=== PATIENT | female | born 1960 | race Caucasian/White ===

== ENCOUNTER → 2016-09-10 | Outpatient (CLI) | payer BC, OTHER ==
--- NOTE | 2016-09-10 13:27 | Discharge Instructions ---
Discharge Instructions Procedure Procedure Date: Sep 10, 2016. Reason for visit: Right Calcs. Discharge Discharge Date: Sep 10, 2016. Discharge Diagnosis: status post breast biopsy Instructions Activity Recommendations: Additional Limitations (see below) Return to School/Work: no limitations Recommended Home Diet: No Limitations Provider Instructions: ACTIVITY RECOMMENDATIONS: * No lifting, pushing, pulling or exercising the affected side for three days. RETURN TO SCHOOL/WORK: * You may return to work/school after the procedure, but do not perform any strenuous activities for 24 to 48 hours. MEDICATIONS: * Tylenol (two 325 mg) every four to six hours if needed for mild pain (if not allergic to Tylenol). DIET: * Resume previous diet. SPECIAL CARE INSTRUCTIONS: * Keep biopsy site dry for 24 hours. May shower after 24 hours, but do not soak (bathe) incision. * May remove Tegaderm (plastic patch) tomorrow AFTER showering. * Leave the steri-strips on for one week. Allow the steri-strips to fall off by themselves. If not off after one week, you may remove them. You may place a Bandaid crosswise over the strips, if desired. * Apply ice 10 minutes on and 10 minutes off as needed. * Wear a bra at bedtime to sleep more comfortably for 2-3 days. * Your referring physician should have the results after approximately 5 to 7 business days. * Call for unusual bleeding, fever, drainage, etc or if you have any questions call during normal business hours or after hours call Dr Ferreira, . FOLLOW UP VISIT: Follow-up with Referring Physician as scheduled. Kaylie Harrisy Recommendations: Call your doctor if: * Temperature above 101 degrees * Pain not relieved by pain medicine ordered * There is increased drainage or redness from any incision * You have any unanswered questions or concerns. Your Doctors Instructions noted above were prepared by provider Raegan Ferreira. Patient Signature Section: Patient Instructions Signature Page Liudmila Frazier Patient (or Guardian) Signature/Date: I have read and understand the instructions given to me by my caregivers. Caregiver/RN/Doctor Signature/Date: The above-named patient and/or guardian has received patient instructions on this date. + Original Patient Signature Page (only) stays with chart. Please make copy for patient.
--- NOTE | 2016-09-10 15:47 | MAMMOGRAPHY REPORT ---
UNILATERAL RIGHT DIGITAL DIAGNOSTIC MAMMOGRAM: 09/10/2016 CLINICAL HISTORY: Status post stereotactic biopsy of right upper outer quadrant calcifications. TECHNIQUE: Postprocedural right CC and LM views were obtained. COMPARISON: Comparison is made to exams dated: 08/26/2016 mammogram, 08/12/2015 mammogram, 08/08/2014 mammogram, 06/20/2013 mammogram, and 06/02/2010 mammogram - [facility]. BREAST COMPOSITION: The tissue of the right breast is heterogeneously dense, which may obscure smal l masses. FINDINGS: A new biopsy marker clip is seen at the site of the biopsied calcifications in the right upper outer quadrant. The new clip is located posterior to the 2 adjacent clips from prior biopsies . No significant postbiopsy hematoma is seen. IMPRESSION: POST PROCEDURE IMAGING FOR MARKER PLACEMENT New biopsy marker clip status post stereotactic biopsy of right upper outer quadrant calcifications. Pathology results are pending. Approximately 10% of breast cancers are not detected with mammography. A negative mammographic repor t should not delay biopsy if a clinically suggestive mass is present. Raegan Ferreira M.D. ah/:09/10/2016 13:43:25 Explosives Mixer Operator: Tia Mirza [facility] BI-RADS Code: Post Procedure Imaging For Marker Placement
--- NOTE | 2016-09-10 15:47 | MAMMOGRAPHY REPORT ---
STEREOTACTIC GUIDED BIOPSY RIGHT BREAST: 09/10/2016 CLINICAL HISTORY: Indeterminate calcifications in the right upper outer quadrant. PATIENT CONSENT: The procedure, risks, benefits, and alternatives of stereotactic biopsy with clip p lacement were discussed with the patient, and verbal and written consent was obtained. A timeout wa s performed immediately prior to the procedure. PROCEDURE DESCRIPTION: With stereotactic guidance, aseptic technique, and lidocaine as a local anest hetic (1% lidocaine to anesthetize the skin and 1% lidocaine with epinephrine to anesthetize the sonia per tissues), the area of concern was sampled multiple times with a 9-gauge vacuum-assisted biopsy n eedle ([employer]uros Eviva). The path of approach was lateral. The specimen radiograph demonstrates calcif ications to be present in the samples. A metallic marker clip was placed at the biopsy site. This was confirmed on postprocedure mammograms. Direct pressure was applied at the biopsy site and hemos tasis was readily achieved. The patient tolerated the procedure without complication. She was give n wound care instructions. The samples were sent to pathology; the samples with calcifications were from the samples without calcifications. COMPARISON: Comparison is made to exams dated: 08/26/2016 mammogram, 08/12/2015 mammogram, 08/08/2014 mammogram, 06/20/2013 mammogram, 05/30/2012 mammogram, and 05/26/2011 mammogram - [facility]. IMPRESSION: STEREOTACTIC GUIDED BIOPSY Stereotactic biopsy of indeterminate calcifications in the right upper outer quadrant, with clip pratima cement. The samples containing calcifications were sent in a separate container from the samples wi thout calcifications. The patient will receive pathology results from her referring physician. Raegan Ferreira M.D. ah/:09/10/2016 13:42:08 Software Database Architect: Tia Mirza, [facility]
== END | disposition home or self-care (01) ==
LOC: C.MAMM 12:39
PROVIDERS: ATTEND Internal Medicine
DX: R92.1 Mammographic calcification found on diagnostic imaging of breast (principal)

== ENCOUNTER → 2017-08-23 | Outpatient (CLI) | payer BC ==
--- NOTE | 2017-08-23 13:06 | MAMMOGRAPHY REPORT ---
BILATERAL DIGITAL SCREENING MAMMOGRAM TOMOSYNTHESIS WITH CAD: 08/23/2017 CLINICAL HISTORY: Routine screening. TECHNIQUE: Breast tomosynthesis in addition to standard 2D mammography was performed. Current study was also evaluated with a Computer Aided Detection (CAD) system. COMPARISON: Comparison is made to exams dated: 09/10/2016 mammogram, 08/26/2016 mammogram, 08/17/2016 mammogram, 08/12/2015 mammogram, 08/08/2014 mammogram, and 06/07/2013 mammogram - [facility]. BREAST COMPOSITION: The tissue of both breasts is heterogeneously dense, which may obscure small mas ses. FINDINGS: There are 3 stable metallic biopsy marker is in the upper outer posterior right breast. Th e glandular pattern of the left breast is stable comparing to prior exams. There are stable rounded punctate microcalcifications bilaterally. No obvious new mass, definite area of architectural distor tion, developing asymmetry or suspicious microcalcifications are identified. IMPRESSION: ACR BI-RADS CATEGORY 1: NEGATIVE There is no mammographic evidence of malignancy. A 1 year screening mammogram is recommended. The pa tient will receive written notification of the results. Approximately 10% of breast cancers are not detected with mammography. A negative mammographic report should not delay biopsy if a clinically suggestive mass is present. iRca Lazo M.D. ay/:08/23/2017 11:14:56 Research Soil Scientist: Dariusz ALEXANDER(Vitaly)(Lizeth), [facility] letter sent: Normal 1/2 BI-RADS Code: ACR BI-RADS Category 1: Negative
== END | disposition home or self-care (01) ==
LOC: C.MAMM 08:57
PROVIDERS: ATTEND Internal Medicine
DX: Z12.31 Encounter for screening mammogram for malignant neoplasm of breast (principal)

== ENCOUNTER 2023-08-03 15:24 | Inpatient (IN) ==
--- NOTE | 2023-08-03 15:44 | ED Triage Note ---
Date of Service August 03, 2023 History of Present Illness This patient was briefly evaluated while in triage. An abbreviated physical exam was performed. This patient is a 63-year-old Female who presents to the ED for evaluation of general illness x 10 days. Reports fever, cough, general body aches. COVID test negative. Physical Exam Constitutional: alert and oriented x3. no acute distress. lethargic HEENT: normocephalic, atraumatic. normal conjunctiva.PERRLA. EOM's grossly intact. Mucous membranes dry Respiratory: lungs are clear to auscultation without wheezes, rhonchi, or rales bilaterally. equal chest rise. normal respiratory effort, no accessory muscle use. Cardiovascular: normal heart sounds without murmur. regular rate and rhythm. GI: abdomen is soft, nontender. No palpable masses. No rebound tenderness or guarding. MSK: moves all 4 extremities spontaneously Psych:appropriate mood and affect. Initial orders for labs and / or imaging were placed and patient was placed in the waiting area until a bed is available. Please see further documentation for the full ED course.
[2023-08-03 16:41] LABS: Alanine Aminotransferase 25 U/L (7-52); Albumin Level 3.5 gm/dl (3.4-5.0); Alkaline Phosphatase 85 U/L (34-104); Anion Gap 14 (3-11); Aspartate Aminotransferase 27 U/L (13-39); BUN Creatinine Ratio 12.9 (10-20); Bilirubin,Total 0.6 mg/dl (0.2-1.0); Blood Urea Nitrogen 19 mg/dl (6-23); Calcium 8.6 mg/dl (8.6-10.3); Carbon Dioxide 23 mmol/L (21-32); Chloride 92 mmol/L (98-107); Est GFR (African American) 43.9 ml/min; Est GFR (Non-African American) 37.9 ml/min; Globulin 3.4 gm/dl (2.5-4.0); Glucose 205 mg/dl (70-99(Fasting)); Potassium 3.9 mmol/L (3.5-5.1); Sodium 129 mmol/L (136-145); Total Protein 6.9 gm/dl (6.0-8.3)
[2023-08-03 16:47] LABS: Troponin I High Sensitivity 32.6 pg/ml (0-14)
--- NOTE | 2023-08-03 16:47 | XRay Report ---
XR chest 1V not portable HISTORY: 63 years-old Female cough fever acute cough with fever COMPARISON: None TECHNIQUE: AP view of the chest FINDINGS: Cardiac and mediastinal and hilar silhouettes are within normal limits. No pneumothorax, pleural effu rodolfo, or overt pulmonary edema. Ill-defined patchy subsegmental airspace opacities throughout the rig ht lung. Bones appear grossly intact. IMPRESSION: Subtle ill-defined patchy subsegmental right midlung opacities are suspicious for pneumon ia. ACT 112: Negative or not required by law. The above report was generated using voice recognition software. It may contain grammatical, syntax o r spelling errors. Electronically signed by: Maxwell Weber M.D. 08/03/2023 4:45 PM
[2023-08-03 16:52] LABS: White Blood Count 42.76 K/ul (4.8-10.8)
[2023-08-03 16:53] LABS: Hematocrit (blood only) 40.4 % (37.0-47.0); Hemoglobin 13.7 g/dl (12.0-16.0); Mean Corpuscular Hemoglobin 29.3 pg (25.0-34.0); Mean Corpuscular Hgb Conc 33.9 g/dL (32.0-36.0); Mean Corpuscular Volume 86.3 fL (80.0-100.0); Mean Platelet Volume 10.3 fL (9.4-12.4); Platelet Count 380 K/uL (130-400); RDW Coefficient of Variation 12.6 % (11.5-14.5); RDW Standard Deviation 39.8 fL (36.4-46.3); Red Blood Count 4.68 M/uL (4.20-5.40)
[2023-08-03] MEDS: SODIUM CHLORIDE 0.9% 1,000 ML IV SCH ×2 (16:55→17:38)
[2023-08-03] MEDS ORDERED: DOXYCYCLINE HYCLATE 100 MG in DEXTROSE 5% MINI-B 100 ML IV STA (16:56)
[2023-08-03] MEDS ORDERED: cefTRIAXone SODIUM 2,000 MG/50 ML BAG IV STA (16:56)
[2023-08-03 16:57] LABS: Basophils # (auto) 0.02 K/uL (0.00-0.20); Dohle Bodies 1+; Echinocytes 1+; Immature Granulocytes # (auto) 2.06 K/uL (0.01-0.20); Immature Granulocytes % (auto) 4.8 %; Lymphocytes # (auto) 1.46 K/uL (1.20-3.40); Lymphocytes % (auto) 3.4 %; Monocytes # (auto) 0.61 K/uL (0.11-0.59); Monocytes % (auto) 1.4 %; Neutrophils # (auto) 38.61 K/uL (1.40-6.50); Neutrophils % (auto) 90.4 %; Toxic Granulation 1+; Toxic Vacuolation 1+
--- NOTE | 2023-08-03 17:06 | Emergency Department Note ---
History of Present Illness General Chief complaint: Flu Like Symptoms Stated complaint: HAND/FEET SWELLING, FLU LIKE SYMPTOMS Time Seen by Provider: 08/03/23 16:43 History of Present Illness Provider complaint: Fever cough sore throat body aches Onset (ago): day(s) 10 Associated symptoms: + fever/chills 63-year-old female presents emergency department for fever cough sore throat and bodyaches. Patient reports her symptoms began 10 days ago. Patient states she is increasingly weak. She states she has not been able to eat or drink anything for last 48 hours. She states that she started developing a rash diffusely over her body today. She denies any new medications or supplements. Patient does report that she has exposure to outdoor cats which have ticks on them but is not sure if she has been bit by any ticks. Home Medications Medication Instructions Recorded Confirmed Type No Known Home Medications 08/03/23 08/03/23 History Allergies Allergy/AdvReac Type Severity Reaction Status Date / Time No Known Allergies Allergy Verified 08/03/23 18:17 Past Med/Surg History Medical History History of basal cell carcinoma History of abnormal cervical Pap smear Surgical History S/P tonsillectomy Family History Father Bladder cancer Denies family history of Ovarian cancer Prostate cancer Heart disease Breast cancer Colorectal cancer Social History Smoking Status: Never smoker Age Started Using Tobacco: 19; Age Quit Using Tobacco: 43; Second Hand Exposure: No; Do You Dip or Chew Tobacco: No; Hx Alcohol Use: Yes Alcohol type: beer Hx Substance Use: No marital status: Current Living Situation: Other current occupational status: employed Feels Safe at Home: Yes Dental Care, Regularly: Yes Physical Activity Frequency: 1-2 Times per Week Physical Exam Vital Signs Vital Signs - 24 hr 08/03/23 15:41 08/03/23 17:00 08/03/23 17:03 Temperature 37.5 C Temperature Source Temporal Artery Scan Pulse Rate 155 H 131 H 141 H Respiratory Rate 19 20 Respiratory Effort / Characteristics Non-Labored Spontaneous Respiratory Depth Normal Blood Pressure 113/69 106/72 Blood Pressure Mean 83 83 Pulse Oximetry 96 97 Oxygen Delivery Method Room Air Room Air Sepsis Recent Fever Within 48 Hours No Sepsis New/Unexplained Change in Mental Status N/A Sepsis Action Taken by Nursing No Action Required 08/03/23 17:31 08/03/23 18:00 08/03/23 18:11 Temperature 38.1 C H Temperature Source Oral Pulse Rate 147 H 147 H Respiratory Rate 21 24 Respiratory Effort / Characteristics Respiratory Depth Blood Pressure 118/62 143/57 H Blood Pressure Mean 80 85 Pulse Oximetry 94 93 Oxygen Delivery Method Room Air Room Air Sepsis Recent Fever Within 48 Hours Sepsis New/Unexplained Change in Mental Status Sepsis Action Taken by Nursing 08/03/23 18:15 08/03/23 18:30 08/03/23 18:45 Temperature Temperature Source Pulse Rate 135 H 129 H 138 H Respiratory Rate 26 H 25 H 17 Respiratory Effort / Characteristics Respiratory Depth Blood Pressure 138/74 131/67 88/69 L Blood Pressure Mean 95 88 75 Pulse Oximetry 94 93 96 Oxygen Delivery Method Room Air Room Air Room Air Sepsis Recent Fever Within 48 Hours Sepsis New/Unexplained Change in Mental Status Sepsis Action Taken by Nursing Physical Exam GENERAL: Ill-appearing. HENT: Exam performed. -Head: Normocephalic and atraumatic. -Mouth/Throat: Dry mucous membranes. No trismus. No submental swelling. No tongue elevation. EYES: Conjunctivae and EOM are normal. Pupils are equal, round, and reactive to light. Right eye exhibits no discharge. Left eye exhibits no discharge. No scleral icterus. NECK: Normal range of motion. Neck supple. No JVD present. No spinous process tenderness present. No rigidity. No tracheal deviation and normal range of motion present. CV: Tachycardic rate, regular rhythm, normal heart sounds and intact distal pulses. There is no peripheral edema. Palpable radial pulses bue. PULM/CHEST: Effort normal and breath sounds normal. No respiratory distress. No stridor. She has no wheezes. She has no rales. ABD: The abdomen is soft. There is no tenderness. There is no rebound, no guarding LYMPH: Bilateral cervical adenopathy. NEURO: She is alert and oriented to person, place, and time. She has normal strength. No cranial nerve deficit or sensory deficit. GCS eye subscore is 4. GCS verbal subscore is 5. GCS motor subscore is 6. SKIN: Diffuse macular rash from her bilateral lower extremities up to her scalp. Nonblanching. No vesicles. Nikolsky negative. Course Course 1643: The patient was evaluated in room C9. A complete history and physical exam was performed Cardiac monitoring: An order was placed for continuous cardiac monitoring. The monitor shows a rate of 140 with sinus tachycardia rhythm interpreted by id Sepsis protocols initiated 2 L normal saline bolus ordered for the patient. 1700: Chest x-ray read by radiology which shows opacities in the right midlung concerning for pneumonia. Antibiotics begun with Rocephin and doxycycline for pulmonary infection which would also cover for any tickborne illnesses including Lyme disease and/or anaplasmosis. 1756: Patient remains tachycardic while IV fluids are infusing. Blood pressure and oxygen saturation are stable. Labs show a white blood cell count of 42.76. Neutrophils 30.61. Coagulation studies within normal limits. Sodium 129. Creatinine 1.47. Lactic acid 3.8. Magnesium 1.4. High-sensitivity troponin 32.6. Patient not reporting any chest pain. Procalcitonin 4.26. Patient's bio fire swab is positive for COVID. Patient's Lyme screen is negative. Anaplasmosis and babesiosis smear is negative. CT scan of soft tissue neck shows no acute abnormality in the neck with some paranasal sinus disease. CT of the head is within normal limits. Discussed case with Dr. Lange [facility] hospitalist will evaluate the patient for admission. Administered Medications Fexofenadine HCl (Fexofenadine Hcl 180 Mg Tab) 180 mg PO QAM BENNIE Stop: 09/02/23 19:44 Last Admin: 08/03/23 21:07 Dose: 180 mg Documented By: DAVE Discontinued Medications Sodium Chloride (Nss) 1,000 mls @ 999 mls/hr IV .Q1H1M BENNIE Stop: 08/03/23 18:45 Last Infusion: 08/03/23 19:49 Dose: Infused Documented By: Admin: 08/03/23 17:38 Dose: 999 mls/hr Documented By: Infusion: 08/03/23 17:38 Dose: Infused Documented By: Admin: 08/03/23 16:55 Dose: 999 mls/hr Documented By: MELANIE Ceftriaxone Sodium (Rocephin) 2,000 mg in 50 mls @ 100 mls/hr IV NOW STA Stop: 08/03/23 17:25 Last Infusion: 08/03/23 17:32 Dose: Infused Documented By: Admin: 08/03/23 17:02 Dose: 100 mls/hr Documented By: MELANIE Doxycycline Hyclate 100 mg/ (Dextrose) 100 mls @ 50 mls/hr IV NOW STA Stop: 08/03/23 18:55 Last Infusion: 08/03/23 19:49 Dose: Infused Documented By: Admin: 08/03/23 17:31 Dose: 50 mls/hr Documented By: MELANIE Piperacillin Sod/Tazobactam Sod (Zosyn) 4.5 gm in 100 mls @ 200 mls/hr IV ONE STA Stop: 08/03/23 19:25 Last Infusion: 08/03/23 20:45 Dose: Infused Documented By: Admin: 08/03/23 20:00 Dose: 200 mls/hr Documented By: DAVE Lactated Ringer's (Lr) 1,000 mls @ 999 mls/hr IV .Q1H1M ONE Stop: 08/03/23 20:00 Last Admin: 08/03/23 19:44 Dose: 999 mls/hr Documented By: DAVE Magnesium Sulfate/Dextrose (Magnesium Sulfate / D5w) 1 gm in 100 mls @ 100 mls/hr IV NOW STA Stop: 08/03/23 20:26 Last Admin: 08/03/23 20:00 Dose: 100 mls/hr Documented By: DAVE Acetaminophen (Ofirmev) 1,000 mg in 100 mls @ 400 mls/hr IV NOW STA Stop: 08/03/23 21:12 Last Admin: 08/03/23 21:06 Dose: 400 mls/hr Documented By: DAVE Ioversol (Optiray 320 500ml) 85 ml IV ONCE ONE Stop: 08/03/23 17:27 Last Admin: 08/03/23 17:26 Dose: 85 ml Documented By: CAROLYN Critical Care Time Critical Care Time: Yes Total Critical Care Time: 62 I have personally spent greater than 62 minutes of critical care time in the direct management of this patient. This includes bedside care, interpretation of diagnostic studies, and testing, discussion with consultants, patient, and family members, and other required patient management activities. This 62 minutes is in excess of all separately billable procedures. Medical Decision Making Laboratory Data Attestation: I reviewed the patient's lab results. 08/03/23 15:54 08/03/23 15:54 Lab Results 08/03/23 08/03/23 08/03/23 Range/Units 15:44 15:54 15:55 WBC 42.76 H* (4.8-10.8) K/ul RBC 4.68 (4.20-5.40) M/uL Hgb 13.7 (12.0-16.0) g/dl Hct 40.4 (37.0-47.0) % MCV 86.3 (80.0-100.0) fL MCH 29.3 (25.0-34.0) pg MCHC 33.9 (32.0-36.0) g/dL RDW Std Deviation 39.8 (36.4-46.3) fL RDW Coeff of Isai 12.6 (11.5-14.5) % Plt Count 380 (130-400) K/uL MPV 10.3 (9.4-12.4) fL Immature Gran % (Auto) 4.8 % Neut % (Auto) 90.4 % Lymph % (Auto) 3.4 % Calloway % (Auto) 1.4 % Eos % (Auto) 0.0 % Baso % (Auto) 0.0 % Neut # (Auto) 38.61 H (1.40-6.50) K/uL Lymph # (Auto) 1.46 (1.20-3.40) K/uL Calloway # (Auto) 0.61 H (0.11-0.59) K/uL Eos # (Auto) 0.00 (0.00-0.50) K/uL Baso # (Auto) 0.02 (0.00-0.20) K/uL Immature Gran # (Auto) 2.06 H (0.01-0.20) K/uL Toxic Granulation 1+ Toxic Vacuolation 1+ Dohle Bodies 1+ Echinocytes 1+ ESR 81 H (0-30) mm/hr PT 13.5 H (9.0-12.0) Seconds INR 1.2 H (0.9-1.1) APTT 30.1 (21.0-31.0) Seconds PTT Ratio 1.1 Sodium 129 L (136-145) mmol/L Potassium 3.9 (3.5-5.1) mmol/L Chloride 92 L (98-107) mmol/L Carbon Dioxide 23 (21-32) mmol/L Anion Gap 14 H (3-11) BUN 19 (6-23) mg/dl Creatinine 1.47 H (0.6-1.2) mg/dl Est Cr Clr Drug Dosing Not Reportable Est GFR ( Amer) 43.9 ml/min Est GFR (Non-Af Amer) 37.9 ml/min BUN/Creatinine Ratio 12.9 (10-20) Glucose 205 H (70-99(Fasting)) mg/dl Lactate (0.4-2.0) mmol/L Calcium 8.6 (8.6-10.3) mg/dl Magnesium 1.4 L (1.7-2.4) mg/dl Total Bilirubin 0.6 (0.2-1.0) mg/dl AST 27 (13-39) U/L ALT 25 (7-52) U/L Alkaline Phosphatase 85 (34-104) U/L Troponin I High Sens 32.6 H (0-14) pg/ml Total Protein 6.9 (6.0-8.3) gm/dl Albumin 3.5 (3.4-5.0) gm/dl Globulin 3.4 (2.5-4.0) gm/dl Albumin/Globulin Ratio 1.0 (0.9-2) Procalcitonin 4.26 H (0-0.5) ng/ml Urine Color Urine Appearance (Clear) Urine pH (4.5-7.5) Ur Specific [place] (1.000-1.030) Urine Protein (Negative) Urine Glucose (UA) (Negative) Urine Ketones (Negative) Urine Blood (Negative) Urine Nitrite (Negative) Urine Bilirubin (Negative) Urine Urobilinogen (Negative) Ur Leukocyte Esterase (Negative) Urine WBC (Auto) (0-5) /hpf Urine RBC (Auto) (0-4) /hpf U Hyaline Cast (Auto) (0-5) /lpf U Epithel Cells (Auto) (0-5) /lpf Urine Bacteria (Auto) (Negative) Ur Renal Epithelial Cell Urine Yeast Anaplasma Smear See Comment Babesia Smear See Comment Lyme Disease IgG Ab Negative (Negative) Lyme Disease IgM Ab Negative (Negative) Monoscreen Negative (Negative) Group A Strep (PCR) (NotDetected) 08/03/23 08/03/23 08/03/23 Range/Units 16:50 17:13 17:58 WBC (4.8-10.8) K/ul RBC (4.20-5.40) M/uL Hgb (12.0-16.0) g/dl Hct (37.0-47.0) % MCV (80.0-100.0) fL MCH (25.0-34.0) pg MCHC (32.0-36.0) g/dL RDW Std Deviation (36.4-46.3) fL RDW Coeff of Isai (11.5-14.5) % Plt Count (130-400) K/uL MPV (9.4-12.4) fL Immature Gran % (Auto) % Neut % (Auto) % Lymph % (Auto) % Calloway % (Auto) % Eos % (Auto) % Baso % (Auto) % Neut # (Auto) (1.40-6.50) K/uL Lymph # (Auto) (1.20-3.40) K/uL Calloway # (Auto) (0.11-0.59) K/uL Eos # (Auto) (0.00-0.50) K/uL Baso # (Auto) (0.00-0.20) K/uL Immature Gran # (Auto) (0.01-0.20) K/uL Toxic Granulation Toxic Vacuolation Dohle Bodies Echinocytes ESR (0-30) mm/hr PT (9.0-12.0) Seconds INR (0.9-1.1) APTT (21.0-31.0) Seconds PTT Ratio Sodium (136-145) mmol/L Potassium (3.5-5.1) mmol/L Chloride (98-107) mmol/L Carbon Dioxide (21-32) mmol/L Anion Gap (3-11) BUN (6-23) mg/dl Creatinine (0.6-1.2) mg/dl Est Cr Clr Drug Dosing Est GFR ( Amer) ml/min Est GFR (Non-Af Amer) ml/min BUN/Creatinine Ratio (10-20) Glucose (70-99(Fasting)) mg/dl Lactate 3.8 H* (0.4-2.0) mmol/L Calcium (8.6-10.3) mg/dl Magnesium (1.7-2.4) mg/dl Total Bilirubin (0.2-1.0) mg/dl AST (13-39) U/L ALT (7-52) U/L Alkaline Phosphatase (34-104) U/L Troponin I High Sens (0-14) pg/ml Total Protein (6.0-8.3) gm/dl Albumin (3.4-5.0) gm/dl Globulin (2.5-4.0) gm/dl Albumin/Globulin Ratio (0.9-2) Procalcitonin (0-0.5) ng/ml Urine Color Dark Yellow Urine Appearance Cloudy A (Clear) Urine pH 5.5 (4.5-7.5) Ur Specific [place] > 1.045 H (1.000-1.030) Urine Protein 2+ H (Negative) Urine Glucose (UA) Negative (Negative) Urine Ketones Negative (Negative) Urine Blood 1+ H (Negative) Urine Nitrite Negative (Negative) Urine Bilirubin Negative (Negative) Urine Urobilinogen Negative (Negative) Ur Leukocyte Esterase Negative (Negative) Urine WBC (Auto) 10-30 H (0-5) /hpf Urine RBC (Auto) 0-4 (0-4) /hpf U Hyaline Cast (Auto) 1-5 (0-5) /lpf U Epithel Cells (Auto) >30 H (0-5) /lpf Urine Bacteria (Auto) Negative (Negative) Ur Renal Epithelial Cell Not Reportable Urine Yeast Not Reportable Anaplasma Smear Babesia Smear Lyme Disease IgG Ab (Negative) Lyme Disease IgM Ab (Negative) Monoscreen (Negative) Group A Strep (PCR) NOT DETECTED (NotDetected) Imaging Data Radiologist's Impression: Chest X-Ray 08/03/23 15:44 XR chest 1V not portable HISTORY: 63 years-old Female cough fever acute cough with fever COMPARISON: None TECHNIQUE: AP view of the chest FINDINGS: Cardiac and mediastinal and hilar silhouettes are within normal limits. No pneumothorax, pleural effusion, or overt pulmonary edema. Ill-defined patchy subsegmental airspace opacities throughout the right lung. Bones appear grossly intact. IMPRESSION: Subtle ill-defined patchy subsegmental right midlung opacities are suspicious for pneumonia. ACT 112: Negative or not required by law. The above report was generated using voice recognition software. It may contain grammatical, syntax or spelling errors. Electronically signed by: Maxwell Weber M.D. 08/03/2023 4:[address] 08/03/23 16:54 CT SCAN OF THE BRAIN WITHOUT IV CONTRAST CLINICAL HISTORY: Headache. COMPARISON STUDY: No priors. TECHNIQUE: Unenhanced axial CT scan of the brain is performed from the vertex to the skull base. A dose lowering technique was utilized adhering to the principles of ALARA. FINDINGS: Brain parenchyma: The brain parenchyma is normal in appearance. There is no hemorrhage, mass effect, or evidence of acute territorial ischemia by CT criteria. Pa-white matter differentiation is preserved. No extra-axial fluid collection is seen. Ventricles, sulci, cisterns: Normal in configuration. Intracranial vasculature: The visualized intracranial vasculature at the skull base is normal in appearance. Calvarium: Unremarkable. Sinuses and mastoids: There is moderate mucosal thickening within the maxillary antra and ethmoid sinuses. Air-fluid levels are seen within the maxillary sinuses. There is subtotal opacification and fluid within the sphenoid sinuses. Trace mucosal thickening is seen in the frontal sinuses. The mastoid air cells are well pneumatized. Orbits: The bony orbits are grossly intact. IMPRESSION: 1. There is no hemorrhage, mass effect, or evidence of acute territorial ischemia by CT criteria. 2. Pansinus disease as above. Correlate clinically for evidence of acute sinusitis. ACT 112: Negative or not required by law. Electronically signed by: Jamey Meyer M.D. 08/03/2023 5:[address] 08/03/23 16:54 CT SCAN OF THE NECK WITH IV CONTRAST CLINICAL HISTORY: Sore throat. COMPARISON STUDY: No priors. TECHNIQUE: Following the IV administration of 85 cc of Optiray 320, CT scan of the soft tissues of the neck was performed from the skull base to the upper chest. Images are reviewed in the axial, sagittal, and coronal planes. IV contrast was administered without complication. A dose lowering technique was utilized adhering to the principles of ALARA. FINDINGS: Pharynx: The pharyngeal soft tissues are normal as imaged. The pharyngeal airway is widely patent. There is no evidence of mass lesion. The vocal cords are symmetric. The parapharyngeal fat is well maintained. The prevertebral/retropharyngeal soft tissues are within normal limits. The epiglottis is normal. Lymphadenopathy: There are numerous small cervical lymph nodes which are not pathologically enlarged by size criteria. Thyroid: Normal in size and heterogeneous in attenuation. Salivary glands: The parotid and submandibular glands are within normal limits. Brain parenchyma: The visualized brain parenchyma at the skull base is normal in appearance. Vascular structures: The carotid arteries and jugular veins are patent bilaterally. Moderate atherosclerotic calcification is seen in the carotid bulbs. Skeletal structures: The skeletal structures are osteopenic. Imaged portions of the calvarium at the skull base are within normal limits. The cervical spine appears intact. Sinuses and mastoids: There is moderate mucosal thickening within the maxillary antra and ethmoid sinuses. Air-fluid levels are seen within the maxillary sinuses. There is subtotal opacification and fluid within the sphenoid sinuses. The mastoid air cells are well pneumatized. Lung apices: Visualized apical lung parenchyma is clear. Dentition: There is a large periapical lucency involving the most posterior left maxillary molar. IMPRESSION: 1. No acute abnormality is seen in the neck. 2. Paranasal sinus disease as above. Correlate clinically for evidence of sinusitis. 3. There are numerous cervical chain lymph nodes. These are not pathologically enlarged by size criteria and may be reactive. Cortical clinically. 4. A large apical lucency is seen involving the most posterior left maxillary molar. Follow up with dentistry is recommended. ACT 112: Negative or not required by law. Electronically signed by: Jamey Meyer M.D. 08/03/2023 5:39 PM ECG Data Attestation: I personally reviewed and interpreted this ECG as follows: Rate (beats per minute): 152 Rhythm: + sinus tachycardia ECG Intervals/blocks: + Normal IN and + Normal QT-c ECG ST segments: + Normal ST segments Additional Comments: 78 MDM Narrative 1643: The patient was evaluated in room C9. A complete history and physical exam was performed Cardiac monitoring: An order was placed for continuous cardiac monitoring. The monitor shows a rate of 140 with sinus tachycardia rhythm interpreted by id Sepsis protocols initiated 2 L normal saline bolus ordered for the patient. 1700: Chest x-ray read by radiology which shows opacities in the right midlung concerning for pneumonia. Antibiotics begun with Rocephin and doxycycline for pulmonary infection which would also cover for any tickborne illnesses including Lyme disease and/or anaplasmosis. 1756: Patient remains tachycardic while IV fluids are infusing. Blood pressure and oxygen saturation are stable. Labs show a white blood cell count of 42.76. Neutrophils 30.61. Coagulation studies within normal limits. Sodium 129. Creatinine 1.47. Lactic acid 3.8. Magnesium 1.4. High-sensitivity troponin 32.6. Patient not reporting any chest pain. Procalcitonin 4.26. Patient's bio fire swab is positive for COVID. Patient's Lyme screen is negative. Anaplasmosis and babesiosis smear is negative. CT scan of soft tissue neck shows no acute abnormality in the neck with some paranasal sinus disease. CT of the head is within normal limits. Discussed case with Dr. Lange [facility] hospitalist will evaluate the patient for admission. Impression & Plan Sepsis, COVID-19, Pneumonia Discharge Plan Visit Data Chief Complaint: Flu Like Symptoms Stated Complaint: HAND/FEET SWELLING, FLU LIKE SYMPTOMS ED Provider: Calvin Williamson Discharge Problem: Sepsis, COVID-19, Pneumonia Patient Disposition: Admitted As Inpatient Discharge Problem: Sepsis Qualifiers: Sepsis type: sepsis due to unspecified organism Sepsis acute organ dysfunction status: unspecified Qualified Code(s): A41.9 - Sepsis, unspecified organism Pneumonia Qualifiers: Pneumonia type: due to unspecified organism Laterality: unspecified laterality Lung location: unspecified part of lung Qualified Code(s): J18.9 - Pneumonia, unspecified organism
[2023-08-03 17:14] LABS: Magnesium 1.4 mg/dl (1.7-2.4)
[2023-08-03 17:15] LABS: INR 1.2 (0.9-1.1); Partial Thromboplastin Ratio 1.1; Partial Thromboplastin Time 30.1 Seconds (21.0-31.0); Prothrombin Time 13.5 Seconds (9.0-12.0)
[2023-08-03] MEDS ORDERED: OPTIRAY 320 500ml IV ONE (17:26)
[2023-08-03 17:29] LABS: Monotest Negative (Negative)
[2023-08-03 17:34] LABS: Adenovirus PCR Not Detected (NotDetected); Bordetella parapertussis PCR Not Detected (NotDetected); Bordetella pertussis PCR Not Detected (NotDetected); Chlamydia pneumoniae PCR Not Detected (NotDetected); Coronavirus 229E PCR Not Detected (NotDetected); Coronavirus HKU1 PCR Not Detected (NotDetected); Coronavirus NL63 PCR Not Detected (NotDetected); Coronavirus OC43PCR Not Detected (NotDetected); Human Metapneumovirus PCR Not Detected (NotDetected); Influenza A PCR Not Detected (NotDetected); Influenza B PCR Not Detected (NotDetected); Mycoplasma pneumoniae PCR Not Detected (NotDetected); Parainfluenza Virus 1 PCR Not Detected (NotDetected); Parainfluenza Virus 2 PCR Not Detected (NotDetected); Parainfluenza Virus 3 PCR Not Detected (NotDetected); Parainfluenza Virus 4 PCR Not Detected (NotDetected); Respiratory Syncytial VirusPCR Not Detected (NotDetected); Rhinovirus/Enterovirus PCR Not Detected (NotDetected)
--- NOTE | 2023-08-03 17:41 | CT Scan Report ---
CT SCAN OF THE NECK WITH IV CONTRAST CLINICAL HISTORY: Sore throat. COMPARISON STUDY: No priors. TECHNIQUE: Following the IV administration of 85 cc of Optiray 320, CT scan of the soft tissues of th e neck was performed from the skull base to the upper chest. Images are reviewed in the axial, sagitt al, and coronal planes. IV contrast was administered without complication. A dose lowering techniqu e was utilized adhering to the principles of ALARA. FINDINGS: Pharynx: The pharyngeal soft tissues are normal as imaged. The pharyngeal airway is widely patent. Th ere is no evidence of mass lesion. The vocal cords are symmetric. The parapharyngeal fat is well main tained. The prevertebral/retropharyngeal soft tissues are within normal limits. The epiglottis is nor mal. Lymphadenopathy: There are numerous small cervical lymph nodes which are not pathologically enlarged by size criteria. Thyroid: Normal in size and heterogeneous in attenuation. Salivary glands: The parotid and submandibular glands are within normal limits. Brain parenchyma: The visualized brain parenchyma at the skull base is normal in appearance. Vascular structures: The carotid arteries and jugular veins are patent bilaterally. Moderate atherosc lerotic calcification is seen in the carotid bulbs. Skeletal structures: The skeletal structures are osteopenic. Imaged portions of the calvarium at the skull base are within normal limits. The cervical spine appears intact. Sinuses and mastoids: There is moderate mucosal thickening within the maxillary antra and ethmoid sin uses. Air-fluid levels are seen within the maxillary sinuses. There is subtotal opacification and flu id within the sphenoid sinuses. The mastoid air cells are well pneumatized. Lung apices: Visualized apical lung parenchyma is clear. Dentition: There is a large periapical lucency involving the most posterior left maxillary molar. IMPRESSION: 1. No acute abnormality is seen in the neck. 2. Paranasal sinus disease as above. Correlate clinically for evidence of sinusitis. 3. There are numerous cervical chain lymph nodes. These are not pathologically enlarged by size crite araceli and may be reactive. Cortical clinically. 4. A large apical lucency is seen involving the most posterior left maxillary molar. Follow up with deloris braden is recommended. ACT 112: Negative or not required by law. Electronically signed by: Jamey Meyer M.D. 08/03/2023 5:39 PM
[2023-08-03 17:48] LABS: Coronavirus CoV-2 (COVID19)PCR DETECTED (NotDetected)
[2023-08-03 17:48] LABS: Procalcitonin 4.26 ng/ml (0-0.5)
--- NOTE | 2023-08-03 17:49 | CT Scan Report ---
CT SCAN OF THE BRAIN WITHOUT IV CONTRAST CLINICAL HISTORY: Headache. COMPARISON STUDY: No priors. TECHNIQUE: Unenhanced axial CT scan of the brain is performed from the vertex to the skull base. A d ose lowering technique was utilized adhering to the principles of ALARA. FINDINGS: Brain parenchyma: The brain parenchyma is normal in appearance. There is no hemorrhage, mass effect, or evidence of acute territorial ischemia by CT criteria. Pa-white matter differentiation is preser stefano. No extra-axial fluid collection is seen. Ventricles, sulci, cisterns: Normal in configuration. Intracranial vasculature: The visualized intracranial vasculature at the skull base is normal in appe arance. Calvarium: Unremarkable. Sinuses and mastoids: There is moderate mucosal thickening within the maxillary antra and ethmoid sin uses. Air-fluid levels are seen within the maxillary sinuses. There is subtotal opacification and flu id within the sphenoid sinuses. Trace mucosal thickening is seen in the frontal sinuses. The mastoid air cells are well pneumatized. Orbits: The bony orbits are grossly intact. IMPRESSION: 1. There is no hemorrhage, mass effect, or evidence of acute territorial ischemia by CT criteria. 2. Pansinus disease as above. Correlate clinically for evidence of acute sinusitis. ACT 112: Negative or not required by law. Electronically signed by: Jamey Meyer M.D. 08/03/2023 5:47 PM
[2023-08-03 17:54] LABS: Lyme Ab IgG w/WB Rflx Negative (Negative); Lyme Ab IgM w/WB Rflx Negative (Negative)
--- NOTE | 2023-08-03 18:11 | History & Physical Report ---
Date of Service August 03, 2023 Assessment & Plan (1) Sepsis: Plan: Suspected source sore throat - group A strep negative, culture pending Sepsis bolus 30ml/kg (1800ml) given in the ER (total 2L NSS) Lactate 3.8 -> 2.5 Empiric Zosyn + doxycycline Follow up blood, throat, urine cultures (2) Sore throat: Plan: Suspected source. No one sided swelling or pus seen on exam. Group A strep PCR negative. Follow up throat culture (3) COVID-19: Plan: Suspect symptoms secondary to bacterial rather than COVID-19. Outside window for anti-virals irregardless. No hypoxia to warrant steroids and relatively contraindicated with suspected bacterial sepsis. Isolation precautions (4) Pneumonia: Plan: Very mild changes on CXR - doubtful this is causing her severe sepsis but will cover for atypical infection with doxycycline in addition to Zosyn. Biofire positive for COVID (5) Rash: Plan: No mucous membrane involvement, blistering to suspect Bhaskar Robert. Not characteristic of erythema marginatum at this time. ?viral exanthem Will consult ID for further advice Start Sabine given pruritus (6) Hyponatremia: Plan: Suspect this is nutritional and will just repeat after NSS given around midnight. If not resolving consider further workup for SIADH (7) Elevated troponin: Plan: No chest pain or significant shortness of breath to suggest ACS Will continue to trend to peak Suspect just demand ischemia however will also get TTE to assess for carditis Plan VTE Prophylaxis - deferred on admission pending stability in Hgb Diet - regular Disposition - admit to PCU Admission and Anticipated Discharge Date Admission Date: August 03, 2023 History of Present Illness Chief Complaint: Sore throat, generalized weakness Primary Care Provider: Anju Thayer MD Liudmila Frazier is a 63 year old female who presents to the ER with generalized weakness, malaise, loss of taste, hand and foot swelling, rash, cough, fever and sore throat. Initial symptom started with sore throat on Tuesday with associated chills and non-productive cough. She reports losing her voice from Tuesday to but now feels this has come back. She has not taken any over the counter medications except for cough sweets. Specifically no NSAIDs. She denies any allergies to any medications. Rash started yesterday on her truck and now over her entire body. She denies any difficulty breathing although her has noticed she is very fatigued on exertion but just hasn't been exerting herself for the last couple of days. She reports everything she eats taste like salt. She denies any sinus pain, tooth ache, chest pain, abdominal pain, diarrhea, nausea, vomiting, urinary symptoms, melena or hematochezia. She notes a history of tonsillectomy aged 5. She is otherwise healthy with no chronic medical conditions or regular medications. She tested positive for SARS-COV-2 in the ER. She reports no prior known COVID. Allergies Allergy/AdvReac Type Severity Reaction Status Date / Time No Known Allergies Allergy Verified 08/03/23 18:17 Home Medications Medication Instructions Recorded Confirmed Type No Known Home Medications 08/03/23 08/03/23 History Past Med/Surg History Medical History History of basal cell carcinoma History of abnormal cervical Pap smear Surgical History S/P tonsillectomy Family History Father Bladder cancer Denies family history of Ovarian cancer Prostate cancer Heart disease Breast cancer Colorectal cancer Social History Smoking Status: Former smoker Age Started Using Tobacco: 19; Age Quit Using Tobacco: 43; Second Hand Exposure: No; Do You Dip or Chew Tobacco: No; Hx Alcohol Use: Yes Alcohol type: beer Hx Substance Use: No Preferred Language: Georgian Communication Ability: Effective Mapping Technician Required: No Beliefs That Will Affect Care: None marital status: Current Living Situation: Family Current Living Situation Comment: Lives with ex-Justice current occupational status: employed Other Information That Helps Us Care for You: No Feels Safe at Home: Yes Safety Concerns: Feels Safe At This Time Dental Care, Regularly: Yes Physical Activity Frequency: 1-2 Times per Week Review of Systems Review of Systems: All systems reviewed & are unremarkable except as noted in HPI & below Physical Exam Constitutional: WD/WN, vitals as above Eyes: PERRL, conjunctivae normal, anicteric sclerae ENMT: Mouth: + dry oral mucous membranes Neck: trachea midline, no thyromegaly Respiratory: normal respiratory effort, lungs clear to auscultation Cardiovascular: Rate/Rhythm: regular rhythm and + tachycardic Heart Sounds: no murmur Extremities: normal capillary refill; no calf tenderness and no pedal edema Gastrointestinal (Abdomen): normal bowel sounds, soft, nontender, no hepatosplenomegaly Musculoskeletal: no cyanosis or clubbing, extremities motor strength 5/5 Skin: Macular rash homogenous and confluent over abdominal wall and bilateral arms but splotchy over bilateral legs Neurologic: moves all extremities (generalized weakness equal bilaterally) and awake Psychiatric: A+Ox3, euthymic affect Genitourinary: no CVA tenderness Lymphatic: no cervical lymphadenopathy Results & Data Results & Data Vital Signs (Past 12 Hours) Vital Signs Temp Pulse Resp BP Pulse Ox O2 Del Method 08/03/23 17:03 141 H 08/03/23 15:41 37.5 C 155 H 19 113/69 96 Room Air Laboratory Results Abnormal lab results 08/03/23 08/03/23 08/03/23 Range/Units 15:54 15:55 17:13 WBC 42.76 H* (4.8-10.8) K/ul Neut # (Auto) 38.61 H (1.40-6.50) K/uL C[place]ra # (Auto) 0.61 H (0.11-0.59) K/uL Immature Gran # (Auto) 2.06 H (0.01-0.20) K/uL PT 13.5 H (9.0-12.0) Seconds INR 1.2 H (0.9-1.1) Sodium 129 L (136-145) mmol/L Chloride 92 L (98-107) mmol/L Anion Gap 14 H (3-11) Creatinine 1.47 H (0.6-1.2) mg/dl Glucose 205 H (70-99(Fasting)) mg/dl Lactate 3.8 H* (0.4-2.0) mmol/L Magnesium 1.4 L (1.7-2.4) mg/dl Troponin I High Sens 32.6 H (0-14) pg/ml Procalcitonin 4.26 H (0-0.5) ng/ml SARS-CoV-2 (PCR) (NotDetected) 08/03/23 Range/Units Unknown WBC (4.8-10.8) K/ul Neut # (Auto) (1.40-6.50) K/uL Cidra # (Auto) (0.11-0.59) K/uL Immature Gran # (Auto) (0.01-0.20) K/uL PT (9.0-12.0) Seconds INR (0.9-1.1) Sodium (136-145) mmol/L Chloride (98-107) mmol/L Anion Gap (3-11) Creatinine (0.6-1.2) mg/dl Glucose (70-99(Fasting)) mg/dl Lactate (0.4-2.0) mmol/L Magnesium (1.7-2.4) mg/dl Troponin I High Sens (0-14) pg/ml Procalcitonin (0-0.5) ng/ml SARS-CoV-2 (PCR) DETECTED A* (NotDetected) Diagnostic Findings CT SCAN OF THE BRAIN WITHOUT IV CONTRAST CLINICAL HISTORY: Headache. COMPARISON STUDY: No priors. TECHNIQUE: Unenhanced axial CT scan of the brain is performed from the vertex to the skull base. A dose lowering technique was utilized adhering to the principles of ALARA. FINDINGS: Brain parenchyma: The brain parenchyma is normal in appearance. There is no hemorrhage, mass effect, or evidence of acute territorial ischemia by CT criteria. Pa-white matter differentiation is preserved. No extra-axial fluid collection is seen. Ventricles, sulci, cisterns: Normal in configuration. Intracranial vasculature: The visualized intracranial vasculature at the skull base is normal in appearance. Calvarium: Unremarkable. Sinuses and mastoids: There is moderate mucosal thickening within the maxillary antra and ethmoid sinuses. Air-fluid levels are seen within the maxillary sinuses. There is subtotal opacification and fluid within the sphenoid sinuses. Trace mucosal thickening is seen in the frontal sinuses. The mastoid air cells are well pneumatized. Orbits: The bony orbits are grossly intact. IMPRESSION: 1. There is no hemorrhage, mass effect, or evidence of acute territorial ischemia by CT criteria. 2. Pansinus disease as above. Correlate clinically for evidence of acute sinusitis. CT SCAN OF THE NECK WITH IV CONTRAST CLINICAL HISTORY: Sore throat. COMPARISON STUDY: No priors. TECHNIQUE: Following the IV administration of 85 cc of Optiray 320, CT scan of the soft tissues of the neck was performed from the skull base to the upper ch est. Images are reviewed in the axial, sagittal, and coronal planes. IV contrast was administered without complication. A dose lowering technique was utilized adhering to the principles of ALARA. FINDINGS: Pharynx: The pharyngeal soft tissues are normal as imaged. The pharyngeal airway is widely patent. There is no evidence of mass lesion. The vocal cords are symmetric. The parapharyngeal fat is well maintained. The prevertebral/retropharyngeal soft tissues are within normal limits. The epiglottis is normal. Lymphadenopathy: There are numerous small cervical lymph nodes which are not pathologically enlarged by size criteria. Thyroid: Normal in size and heterogeneous in attenuation. Salivary glands: The parotid and submandibular glands are within normal limits. Brain parenchyma: The visualized brain parenchyma at the skull base is normal in appearance. Vascular structures: The carotid arteries and jugular veins are patent bilaterally. Moderate atherosclerotic calcification is seen in the carotid bulbs. Skeletal structures: The skeletal structures are osteopenic. Imaged portions of the calvarium at the skull base are within normal limits. The cervical spine appears intact. Sinuses and mastoids: There is moderate mucosal thickening within the maxillary antra and ethmoid sinuses. Air-fluid levels are seen within the maxillary sinuses. There is subtotal opacification and fluid within the sphenoid sinuses. The mastoid air cells are well pneumatized. Lung apices: Visualized apical lung parenchyma is clear. Dentition: There is a large periapical lucency involving the most posterior left maxillary molar. IMPRESSION: 1. No acute abnormality is seen in the neck. 2. Paranasal sinus disease as above. Correlate clinically for evidence of sinusitis. 3. There are numerous cervical chain lymph nodes. These are not pathologically enlarged by size criteria and may be reactive. Cortical clinically. 4. A large apical lucency is seen involving the most posterior left maxillary molar. Follow up with dentistry is recommended. XR chest 1V not portable HISTORY: 63 years-old Female cough fever acute cough with fever COMPARISON: None TECHNIQUE: AP view of the chest FINDINGS: Cardiac and mediastinal and hilar silhouettes are within normal limits. No pneumothorax, pleural effusion, or overt pulmonary edema. Ill-defined patchy subsegmental airspace opacities throughout the right lung. Bones appear grossly intact. IMPRESSION: Subtle ill-defined patchy subsegmental right midlung opacities are suspicious for pneumonia. Medications Administered ER Medications Given: Normal saline 1000ml bolus x2 Ceftriaxone 2g IV Doxycycline 100mg IV ECG Rate (beats per minute): 152 Rhythm: sinus tachycardia Findings: + other (right axis deviation) Comparison ECG Date: no prior available Code Status & VTE Plan Code Status Full VTE Prophylaxis Plan VTE Prophylaxis will be ordered: No PG Care Time/CCT Total # of Minutes Spent Total Time Spent with Patient: Total time spent is greater than 50% in coordination of care (as documented) at patient's floor/unit and/or counseling patient: Coding Level of Care Code 86721 INT INP/OBS CARE 3/75MIN Diagnoses Sepsis A41.9 Sore throat J02.9 COVID-19 U07.1 Pneumonia J18.9 Laterality: unspecified laterality Lung location: unspecified part of lung Pneumonia type: due to unspecified organism Rash R21 Hyponatremia E87.1 Elevated troponin R79.89 (4) Pneumonia Laterality: unspecified laterality Lung location: unspecified part of lung Pneumonia type: due to unspecified organism Qualified Code(s): J18.9 - Pneumonia, unspecified organism
[2023-08-03 18:18] LABS: Appearance Urine Cloudy (Clear); Bacteria Urine Automated Negative (Negative); Bilirubin Urine Negative (Negative); Blood Urine 1+ (Negative); Color Urine Dark Yellow; Epithelial Cell Urine Auto >30 /lpf (0-5); Glucose Urine UA Negative (Negative); Ketones Urine Negative (Negative); Leukocyte Esterase Urine Negative (Negative); Nitrite Urine Negative (Negative); Protein Urine 2+ (Negative); RBC Urine Automated 0-4 /hpf (0-4); Specific Gravity Urine > 1.045 (1.000-1.030); Urobilinogen Urine Negative (Negative); pH Urine 5.5 (4.5-7.5)
[2023-08-03] MEDS ORDERED: PIPERACILLIN/TAZOBACTAM 4.5 GM in DEXTROSE 5% MINI-B 100 ML IV ONE (18:54)
[2023-08-03] MEDS ORDERED: PIPERACILLIN/TAZOBACTAM 4.5 GM/100 ML BAG IV STA (18:56)
[2023-08-03] MEDS ORDERED: LACTATED RINGER'S 1,000 ML IV ONE (19:00)
[2023-08-03] MEDS ORDERED: MAGNESIUM SULFATE / D5W 1 GM/100 ML BAG IV STA (19:27)
[2023-08-03 19:56] LABS: C Reactive Protein 29.45 mg/dl (0-0.5)
[2023-08-03 20:16] LABS: Troponin I High Sensitivity 65.7 pg/ml (0-14)
[2023-08-03] MEDS ORDERED: ACETAMINOPHEN 1,000 MG/100 ML VIAL IV STA (20:58)
[2023-08-03] MEDS: FEXOFENADINE HCL 180 MG TAB PO SCH (21:07)
[2023-08-03] MEDS ORDERED: MAGNESIUM SULFATE / D5W 1 GM/100 ML BAG IV SCH (21:32)
[2023-08-03] MEDS ORDERED: ACETAMINOPHEN 325 MG TAB PO PRN (21:54)
[2023-08-03] MEDS: PLASMA-LYTE A 1,000 ML IV SCH (22:17)
[2023-08-04] MEDS: PIPERACILLIN/TAZOBACTAM 4.5 GM in DEXTROSE 5% MINI-B 100 ML IV SCH ×3 (00:20→18:09)
[2023-08-04 01:11] LABS: Hematocrit (blood only) 31.5 % (37.0-47.0); Hemoglobin 10.7 g/dl (12.0-16.0); Mean Corpuscular Hemoglobin 29.3 pg (25.0-34.0); Mean Corpuscular Volume 86.3 fL (80.0-100.0); Mean Platelet Volume 9.6 fL (9.4-12.4); Platelet Count 276 K/uL (130-400); RDW Coefficient of Variation 12.7 % (11.5-14.5); RDW Standard Deviation 40.3 fL (36.4-46.3); Red Blood Count 3.65 M/uL (4.20-5.40)
[2023-08-04 01:17] LABS: Calcium 7.4 mg/dl (8.6-10.3); Est GFR (African American) 65.2 ml/min; Est GFR (Non-African American) 56.2 ml/min; Potassium 3.3 mmol/L (3.5-5.1)
[2023-08-04 01:20] LABS: Basophils # (auto) 0.15 K/uL (0.00-0.20); Basophils % (auto) 0.4 %; Echinocytes 1+; Eosinophils # (auto) 0.01 K/uL (0.00-0.50); Immature Granulocytes # (auto) 1.78 K/uL (0.01-0.20); Immature Granulocytes % (auto) 5.1 %; Lymphocytes # (auto) 1.68 K/uL (1.20-3.40); Lymphocytes % (auto) 4.8 %; Monocytes # (auto) 0.54 K/uL (0.11-0.59); Monocytes % (auto) 1.5 %; Neutrophils # (auto) 31.04 K/uL (1.40-6.50); Neutrophils % (auto) 88.2 %
[2023-08-04 01:29] LABS: Troponin I High Sensitivity 82.3 pg/ml (0-14)
[2023-08-04] MEDS ORDERED: POTASSIUM CHLORIDE CRTAB 20 MEQ TABCR PO STA (01:47)
[2023-08-04] MEDS: DOXYCYCLINE HYCLATE 100 MG in DEXTROSE 5% MINI-B 100 ML IV SCH ×2 (06:03→18:43)
[2023-08-04] MEDS: PLASMA-LYTE A 1,000 ML IV SCH ×3 (06:05→22:35)
[2023-08-04 07:07] LABS: Hematocrit (blood only) 29.9 % (37.0-47.0); Hemoglobin 10.2 g/dl (12.0-16.0); Mean Corpuscular Hemoglobin 29.1 pg (25.0-34.0); Mean Corpuscular Hgb Conc 34.1 g/dL (32.0-36.0); Mean Corpuscular Volume 85.4 fL (80.0-100.0); Mean Platelet Volume 9.8 fL (9.4-12.4); Platelet Count 262 K/uL (130-400); RDW Coefficient of Variation 12.3 % (11.5-14.5); RDW Standard Deviation 38.5 fL (36.4-46.3); White Blood Count 31.16 K/ul (4.8-10.8)
[2023-08-04 07:19] LABS: INR 1.3 (0.9-1.1); Prothrombin Time 13.8 Seconds (9.0-12.0)
[2023-08-04 07:23] LABS: Albumin Globulin Ratio 1.1 (0.9-2); Albumin Level 2.7 gm/dl (3.4-5.0); BUN Creatinine Ratio 15.9 (10-20); Bilirubin,Total 0.6 mg/dl (0.2-1.0); Calcium 7.6 mg/dl (8.6-10.3); Creatinine Clr Calc Pharmacy 60.2 ml/min; Est GFR (African American) 81.6 ml/min; Est GFR (Non-African American) 70.4 ml/min; Globulin 2.5 gm/dl (2.5-4.0); Magnesium 1.8 mg/dl (1.7-2.4); Potassium 3.9 mmol/L (3.5-5.1); Total Protein 5.2 gm/dl (6.0-8.3)
[2023-08-04 07:24] LABS: BUN Creatinine Ratio 15.9 (10-20); Calcium 7.6 mg/dl (8.6-10.3); Creatinine Clr Calc Pharmacy 60.2 ml/min; Est GFR (African American) 81.6 ml/min; Est GFR (Non-African American) 70.4 ml/min; Potassium 3.9 mmol/L (3.5-5.1)
[2023-08-04 07:32] LABS: Basophils # (auto) 0.06 K/uL (0.00-0.20); Basophils % (auto) 0.2 %; Dohle Bodies 1+; Echinocytes 2+; Eosinophils # (auto) 0.02 K/uL (0.00-0.50); Eosinophils % (auto) 0.1 %; Immature Granulocytes # (auto) 1.43 K/uL (0.01-0.20); Immature Granulocytes % (auto) 4.6 %; Lymphocytes # (auto) 1.48 K/uL (1.20-3.40); Lymphocytes % (auto) 4.7 %; Monocytes # (auto) 0.37 K/uL (0.11-0.59); Monocytes % (auto) 1.2 %; Neutrophils % (auto) 89.2 %
[2023-08-04 07:33] LABS: Troponin I High Sensitivity 64.5 pg/ml (0-14)
[2023-08-04 07:54] LABS: Thyroid Stimulating Hormone 1.03 uIu/ml (0.300-4.500)
[2023-08-04] MEDS: FEXOFENADINE HCL 180 MG TAB PO SCH (09:34)
--- NOTE | 2023-08-04 11:11 | Infectious Disease Consult ---
Date of Consultation August 04, 2023 Assessment & Plan (1) COVID-19: (2) Elevated troponin: (3) Pharyngitis: (4) Fever: (5) Leukocytosis: (6) Rash: (7) Erythema marginatum: Plan Liudmila Frazier is a 63-year-old woman with history of tonsillectomy (at age 5) who presents to the ED on 08/03/23 with sore throat, diffuse rash, cough, fever, sore throat, dysgeusia, hand and foot swelling, found to be Covid-19+, with fevers, elevated troponin (peak 82), ESR 81 CRP 29. ID is consulted for Covid-19 and evaluation of fevers. Concern for hyperinflammatory response to Covid-19 including MIS-A. The patients D1 of Covid-19 symptoms was 07/24/23. Without hypoxemia, and >10 days out from sx, thus would not give remdesivir. Concern that patients clinical picture may represent MIS-A or other systemic rheumatologic disease due to Covid-19 infection. Regarding MIS-A, pt with rash but does not have non- purulent conjunctivitis; she does have elevated ESR and procalcitonin (though these are nonspecific) and a +SARS-CoV-2 test. t also with hypotension to SBP 80s-90. Will send IL-6 and ferritin. Of note, pts LLE swollen compared with R and would consider RLE duplex. With elevated troponin which could be c/f myocarditis/pericarditis. and thus would obtain TTE, though no chest pain to suggest pericarditis. Would highly consider glucocorticoids, IVIG, and anakinra. Case definition of MIS-A: https://www.cdc.gov/mis/mis-a/hcp.html Case report with steroids, IVIG, anakinra: htt ps://www.acpjournals.org/doi/10.7326/aimcc.2021.0066#F2 Dosing for MIS-C (a similar and more well-described syndrome in children): https://www.snnhe14hbybwrzmsznhmdvlvrh.nih.gov/tables/wfs-e-zbvunr-regimens/ Given the pts leukocytosis and fevers, also checking for other infections including typical bacterial infection. BCx NGTD. Without s/sx of bacterial pneumonia. With severe pharyngitis symptoms though without abscess, pt is s/p tonsillectomy. Some sinusitis on CT though would not expect that to explain the patients severe presentation. Throat PCR negative for Group A Strep, throat cx NGTD. Will also send Monospot, Mycoplasma pneumoniae PCR and serology. Will also send Histo UrAg. Can continue pip-tazo. If worsening fevers, can repeat BCx. If hemodynamic instability, can start IV vancomycin as well. The patients rash has coalescing patches and macules, as well as circular lesionsthe circular lesions appearing to resemble erythema marginatum and less resembling erythema multiforme. This can be associated with Covid-19 as well though is nonspecific and associated with other infections as well. Also considered the possibility of tickborne illness, though pts rash does not appear to be maculopapular and does not resemble erythema migrans. Rickettsia Ab and Anaplasma/Babesia studies pending. Thus far with negative Anaplasma smear, Lyme Ab neg. Can continue doxycycline. ID Problem List: 1.Covid-19 infection 2.Fever, leukocytosis, concern for MIS-A 3.Rash, possible erythema marginatum 4.Pharyngitis 5.Elevated troponin Recommendations: - Would highly consider steroids (methylprednisolone 1-2 mg/kg IV Q12H), anakinra, and IVIG - Continue doxycycline 100 mg BID (can change to PO if pt tolerating) - Continue pip-tazo 4.5 g IV Q8H - If worsening fevers, can repeat BCx. If hemodynamic instability, can start IV vancomycin as well - Send IL-6, ferritin, monospot, HSV-1/2 PCR, Mycoplasma pneumoniae Ab, Histo UrAg - F/u Rickettsia Ab, Q fever Ab, Anaplasma DNA PCR, Babesia DNA PCR, Babesia smear - Obtain TTE - Continue to trend ESR/CRP, repeat in ~3 days ID will continue to follow. Raegan Skaggs MD, [facility] Infectious Diseases [facility] direct line: [phone] Consultation Information Consultation was provided via telemedicine using two-way real-time interactive telecommunication between the patient and the telemedicine provider. For the duration of the visit, the provider was performing the assessment from a different facility than the patient. This includesuse of bluetooth stethoscope forauscultationperformed by the telepresenter that the telemedicine provider c an hear if described in the physical exam. [employer] contact information: Please call [facility] Call Center [phone]. (Phone Number For Physician Use Only) After establishing a telemedicine visit, patient was: Patient was verified with two unique identifiers, Patient/authorized rep acknowledged consent and understanding and Gave permission to continue telehealth session Time Spent with Patient: Initial => 75 min History of Present Illness Reason for Consultation: Covid-19, fevers Attending Physician: Corin West MD History of Present Illness Liudmila Frazier is a 63-year-old woman with history of tonsillectomy (at age 5) who presents to the ED on 08/03/23 with sore throat, diffuse rash, cough, fever, sore throat, dysgeusia, hand and foot swelling, found to be Covid-19+, with fevers, elevated troponin (peak 82), ESR 81 CRP 29. ID is consulted for Covid-19 and evaluation of fevers. Her initial symptoms began with sore throat on Tuesday 07/24, with associated chills and non-productive cough. Her home Covid test was negative on Friday 07/27. She reports losing her voice from Thursday 07/26 to 07/28 but this improved. She was able to work on 07/25 but was very fatigued afterward. She then developed a rash on 08/02 that started on her trunk and generalized to her entire body, as well as swelling in her hands and feet bilaterally. She also developed fevers. The rash is slightly pruritic but not painful. No shortness of breath, but worsened fatigue. The patient also reports dysgeusia where everythin g she eats taste like salt. No chest pain, dyspnea, abdominal pain, nausea, vomiting, urinary symptoms. She has not taken any over the counter medications except for cough lozenges. Did not take NSAIDs, and is not aware of any allergies to any medications. No antibiotics, no steroids. No sick contacts, and no exposure to any children. In the ED, TMax on 08/03 of 39.5, BP ranged 88/69 to 143/57. WBC of 42.76 (90.4% neutrophils, 4.8% immature granulocytes). ESR 81 CRP 29.45. Procalcitonin 4.26. She tested positive for SARS-COV-2 on a respiratory pathogen panel. Lactate 3.8 -> 2.5. Troponin 65.7->82.3->64.5.She was started on pip-tazo and doxycycline. On 08/04 with WBC of 31, Hgb 10.2 and plts 262. At the time of evaluation, the patient is having significant throat pain and therefore finds it difficult to talk. She reports a few intermittent loose stools (only 0-1/day), and aching of her bilateral shoulders. She reports no prior known Covid infection. She received her primary Covid-19 vaccine series (she believes in 2019) but has not had any further Covid vaccines since that time. She has history of tonsillectomy at age 5. She is otherwise healthy with no chronic medical conditions or regular medications. She lives with her . She has one outside cat, that has been noted to have ticks. No cat scratches or bites. No hiking, camping, or fishing. 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 She does not have a personal or family history of autoimmune disease. Allergies Allergy/AdvReac Type Severity Reaction Status Date / Time No Known Allergies Allergy Verified 08/03/23 18:17 Home Medications Medication Instructions Recorded Confirmed Type No Known Home Medications 08/03/23 08/03/23 History Patient History Medical History History of basal cell carcinoma History of abnormal cervical Pap smear Surgical History S/P tonsillectomy Family History Father Bladder cancer Denies family history of Ovarian cancer Prostate cancer Heart disease Breast cancer Colorectal cancer Social History Smoking Status: Former smoker Age Started Using Tobacco: 19; Age Quit Using Tobacco: 43; Second Hand Exposure: No; Do You Dip or Chew Tobacco: No; Hx Alcohol Use: Yes Alcohol type: beer Hx Substance Use: No Preferred Language: Citizen Of [place] Communication Ability: Effective Campaign Marketing Manager Required: No Beliefs That Will Affect Care: None marital status: Current Living Situation: Family Current Living Situation Comment: Lives with ex-Justice current occupational status: employed Other Information That Helps Us Care for You: No Feels Safe at Home: Yes Safety Concerns: Feels Safe At This Time Dental Care, Regularly: Yes Physical Activity Frequency: 1-2 Times per Week Physical Exam Physical Exam: Exam obtained with aid of in-person telepresenter. General: Well-appearing, no acute distress HEENT: Conjunctivae non-injected, sclerae anicteric. Difficulty with mouth opening due to sore throat, MMM, OP clear. CV: Unable to tele-auscultate due to technical difficulties; per telepresenter: RRR, normal S1/S2; no murmurs, rubs, or gallops. Resp: Unable to tele-auscultate due to technical difficulties; per telepresenter: LLL crackles that clear with cough. Respirations nonlabored. Abd: Soft, nontender, nondistended. Normal bowel sounds throughout. No masses or organomegaly. Ext: Warm and well-perfused, no edema. No joint warmth or effusions noted. Well- healed scar over L shoulder (pt reports is from cyst removal). LLE with increase edema compared with the RLE. L knee here but without warmth or erythema. Diffuse aching and tenderness to palpation over extremities. Skin: Erythematous macules and patches with some coalescing. On patients trunk, but not present on upper chest or neck. Area over lower abdomen with circular shaped rings and more violaceous appearance. Involving bilateral upper and lower extremities, including faint patches present on bilateral palms and soles. Nontender, mildly pruritic. Neuro: Alert & interactive. Grossly non-focal. Weakness in bilateral upper and lower extremities Psych: Pleasant, appropriate. Results & Data Vital Signs (Past 12 Hours) Vital Signs Temp Pulse Pulse Resp BP BP Pulse Ox 08/04/23 10:28 36.8 C 120 H 19 103/93 93 08/04/23 09:33 114 H 08/04/23 08:55 08/04/23 07:53 36.5 C 119 H 20 100/63 95 08/04/23 03:05 36.4 C L 112 H 18 101/63 96 08/04/23 02:00 36.5 C 112 H 20 104/65 98 08/04/23 00:00 132 H 08/04/23 00:00 36.7 C 112 H 15 95/56 L 96 O2 Del Method 08/04/23 10:28 Room Air 08/04/23 09:33 08/04/23 08:55 Room Air 08/04/23 07:53 Room Air 08/04/23 03:05 Room Air 08/04/23 02:00 Room Air 08/04/23 00:00 08/04/23 00:00 Room Air Diagnostic Findings Diagnostics: 08/03/23 CT neck soft tissue 1. No acute abnormality is seen in the neck. 2. Paranasal sinus disease as above. Correlate clinically for evidence of sinusitis. 3. There are numerous cervical chain lymph nodes. These are not pathologically enlarged by size criteria and may be reactive. Cortical clinically. 4. A large apical lucency is seen involving the most posterior left maxillary molar. Follow up with dentistry is recommended. 08/03/23 CT head Sinuses and mastoids: There is moderate mucosal thickening within the maxillary antra and ethmoid sinuses. Air-fluid levels are seen within the maxillary sinuses. There is subtotal opacification and fluid within the sphenoid sinuses. Trace mucosal thickening is seen in the frontal sinuses. The mastoid air cells are well pneumatized. 1. There is no hemorrhage, mass effect, or evidence of acute territorial ischemia by CT criteria. 3.Pansinus disease as above. Correlate clinically for evidence of acute sinusitis. Micro Summary: 08/03 UCx NGTD 08/03 BCx x2 NGTD 08/03 throat cx light nl kezia preliminary, final cx pending 08/03 MRSA nares neg 08/03 respiratory pathogen panel: SARS-CoV-2 detected 08/03 Rickettsia IgG Ab: p 08/03 Lyme IgG Ab neg, IgM Ab neg 08/03 Q fever Ab: p 08/03 Typhus fever Ab: p 08/03 Group A Strep throat PCR: not detected 08/03 UA: 10-30 WBCs, 0-4 RBCs, >30 epithelial Antibiotic Summary: pip-tazo (08/03-present) doxycycline (08/03-present)
--- NOTE | 2023-08-04 12:14 | XCELERA ---
[id number] [id number]___[id number]
--- NOTE | 2023-08-04 13:55 | Electrocardiogram Report ---
Test Reason : Blood Pressure : / mmHG Vent. Rate : 152 BPM Atrial Rate : 152 BPM P-R Int : 116 ms QRS Dur : 078 ms QT Int : 268 ms P-R-T Axes : 074 110 018 degrees QTc Int : 426 ms Sinus tachycardia Right axis deviation Incomplete right bundle branch block Abnormal ECG No previous ECGs available Confirmed by Porter Wahl ([id number]) on 08/04/2023 1:55:41 PM Referred By: Confirmed By:Bal Wahl
--- NOTE | 2023-08-04 14:40 | Ultrasound Report ---
ULTRASOUND LEFT LOWER EXTREMITY VENOUS CLINICAL HISTORY: Left leg swelling and pain. Covid. COMPARISON STUDY: No priors. TECHNIQUE: Real-time, grayscale, and color Doppler sonography of the deep veins of the left lower ext remity was performed from the inguinal crease to the calf. Compression and augmentation were utilized . FINDINGS: There is no sonographic evidence of deep venous thrombosis identified in the left lower ext remity. The common femoral, superficial femoral, and popliteal veins are patent and normally compress ible. The greater saphenous vein and the profunda femoris vein at the junction with the common femora l vein are clear. The visualized calf veins are patent. IMPRESSION: There is no sonographic evidence of deep venous thrombosis identified in the left lower e xtremity. ACT 112: Negative or not required by law. Electronically signed by: Jamey Meyer M.D. 08/04/2023 2:39 PM
[2023-08-04] MEDS ORDERED: methylPREDNISolone 80 MG in SYRINGE 0 ML IV STA (15:26)
--- NOTE | 2023-08-04 17:25 | Hospitalist Progress Note ---
Date of Service August 04, 2023 Assessment & Plan (1) Sepsis: Plan: Patient met criteria for sepsis. Was given fluid bolus Lactic acidosis resolved Being treated with IV Zosyn and doxycycline White count severely elevated at 30,000 today and yet cultures (Blood, urine, throat) are negative so far. infectious disease involved There is concern for severe inflammatory reaction to COVID 19 Patient presents with rash, high procalcitonin level, high inflammatory markers, elevated troponin. Spoke to infectious disease who is concerned about MIS-A recommended starting steroids, IVIG, anakinra Ordered 80 mg IV methylprednisolone x 1. Infection workup In progress, although so far negative. Will monitor response Ordered daily inflammatory markers including ESR, CRP, ferritin Ordered IL-6 which is a send out test (2) Sore throat: Plan: Suspected source. No one sided swelling or pus seen on exam. CT neck soft tissue fairly unremarkable Group A strep PCR negative. throat culture so far negative (3) COVID-19: Plan: her symptoms began on 07/24. She is outside the window for antivirals. No hypoxia. Continue isolation precautions most likely has hyper inflammatory response to COVID: MIS-A (4) Pneumonia: Plan: Very mild changes on CXR - doubtful this is causing her severe sepsis but will cover for atypical infection with doxycycline in addition to Zosyn. Biofire positive for COVID (5) Rash: Plan: No mucous membrane involvement, blistering to suspect Bhaskar Robert. Not characteristic of erythema marginatum at this time. ?viral exanthem ? Part of hyper inflammatory reaction from COVID (6) Hyponatremia: Plan: Suspect this is nutritional Improved with IV hydration (7) Elevated troponin: Plan: No chest pain or significant shortness of breath to suggest ACS TTE was clinically difficult to read Concern for posterior wall and lateral wall hypokinesis ? viral Myocarditis EF 55 to 60% Plan VTE Prophylaxis - start Lovenox Diet - regular Admission and Anticipated Discharge Date Admission Date: August 03, 2023 Subjective patient complains of severe sore throat. She also has myalgias and Arthralgias. She is generally very weak. Diffuse rash is slightly better today, per . Review of Systems Review of Systems: All systems reviewed & are unremarkable except as noted in Subjective Physical Exam Physical Exam: General: Awake, conversant. Patient is sick appearing. There is a rash noted on her face, abdominal wall, bilateral arms. Heart: S1, S2/regular rate and rhythm, no murmur rubs or gallops Lungs: Clear to auscultation bilaterally. Normal effort Abdomen: Soft/nontender/nondistended. No hepatosplenomegaly Extremities: No clubbing/cyanosis. No edema Behavior: Appropriate, cooperative Results & Data Results & Data Vital Signs (Past 12 Hours) Vital Signs Temp Pulse Pulse Resp BP BP Pulse Ox 08/04/23 14:49 37.0 C 120 H 19 101/61 96 08/04/23 10:28 36.8 C 120 H 19 103/93 93 08/04/23 09:33 114 H 08/04/23 08:55 08/04/23 07:53 36.5 C 119 H 20 100/63 95 O2 Del Method 08/04/23 14:49 Room Air 08/04/23 10:28 Room Air 08/04/23 09:33 08/04/23 08:55 Room Air 08/04/23 07:53 Room Air Laboratory Results Abnormal lab results 08/03/23 08/03/23 08/03/23 Range/Units 15:44 15:54 17:13 WBC (4.8-10.8) K/ul RBC (4.20-5.40) M/uL Hgb (12.0-16.0) g/dl Hct (37.0-47.0) % Neut # (Auto) (1.40-6.50) K/uL Immature Gran # (Auto) (0.01-0.20) K/uL ESR 81 H (0-30) mm/hr PT (9.0-12.0) Seconds INR (0.9-1.1) Sodium (136-145) mmol/L Potassium (3.5-5.1) mmol/L Glucose (70-99(Fasting)) mg/dl Lactate 3.8 H* (0.4-2.0) mmol/L Calcium (8.6-10.3) mg/dl Troponin I High Sens (0-14) pg/ml C-Reactive Protein (0-0.5) mg/dl Total Protein (6.0-8.3) gm/dl Albumin (3.4-5.0) gm/dl Procalcitonin 4.26 H (0-0.5) ng/ml Urine Appearance (Clear) Ur Specific [place] (1.000-1.030) Urine Protein (Negative) Urine Blood (Negative) Urine WBC (Auto) (0-5) /hpf U Epithel Cells (Auto) (0-5) /lpf SARS-CoV-2 (PCR) (NotDetected) 08/03/23 08/03/23 08/03/23 Range/Units 17:58 19:28 Unknown WBC (4.8-10.8) K/ul RBC (4.20-5.40) M/uL Hgb (12.0-16.0) g/dl Hct (37.0-47.0) % Neut # (Auto) (1.40-6.50) K/uL Immature Gran # (Auto) (0.01-0.20) K/uL ESR (0-30) mm/hr PT (9.0-12.0) Seconds INR (0.9-1.1) Sodium (136-145) mmol/L Potassium (3.5-5.1) mmol/L Glucose (70-99(Fasting)) mg/dl Lactate 2.5 H* (0.4-2.0) mmol/L Calcium (8.6-10.3) mg/dl Troponin I High Sens 65.7 H* D (0-14) pg/ml C-Reactive Protein 29.45 H (0-0.5) mg/dl Total Protein (6.0-8.3) gm/dl Albumin (3.4-5.0) gm/dl Procalcitonin (0-0.5) ng/ml Urine Appearance Cloudy A (Clear) Ur Specific [place] > 1.045 H (1.000-1.030) Urine Protein 2+ H (Negative) Urine Blood 1+ H (Negative) Urine WBC (Auto) 10-30 H (0-5) /hpf U Epithel Cells (Auto) >30 H (0-5) /lpf SARS-CoV-2 (PCR) DETECTED A* (NotDetected) 08/04/23 08/04/23 08/04/23 Range/Units 00:40 06:21 06:21 WBC 35.20 H* 31.16 H* (4.8-10.8) K/ul RBC 3.65 L 3.50 L (4.20-5.40) M/uL Hgb 10.7 L D 10.2 L (12.0-16.0) g/dl Hct 31.5 L 29.9 L (37.0-47.0) % Neut # (Auto) 31.04 H 27.80 H (1.40-6.50) K/uL Immature Gran # (Auto) 1.78 H 1.43 H (0.01-0.20) K/uL ESR (0-30) mm/hr PT 13.8 H (9.0-12.0) Seconds INR 1.3 H (0.9-1.1) Sodium 130 L 131 L 130 L (136-145) mmol/L Potassium 3.3 L (3.5-5.1) mmol/L Glucose 132 H 127 H (70-99(Fasting)) mg/dl Lactate (0.4-2.0) mmol/L Calcium 7.4 L (8.6-10.3) mg/dl Troponin I High Sens 82.3 H* D (0-14) pg/ml C-Reactive Protein (0-0.5) mg/dl Total Protein (6.0-8.3) gm/dl Albumin (3.4-5.0) gm/dl Procalcitonin (0-0.5) ng/ml Urine Appearance (Clear) Ur Specific [place] (1.000-1.030) Urine Protein (Negative) Urine Blood (Negative) Urine WBC (Auto) (0-5) /hpf U Epithel Cells (Auto) (0-5) /lpf SARS-CoV-2 (PCR) (NotDetected) 08/04/23 08/04/23 Range/Units 06:21 06:21 WBC (4.8-10.8) K/ul RBC (4.20-5.40) M/uL Hgb (12.0-16.0) g/dl Hct (37.0-47.0) % Neut # (Auto) (1.40-6.50) K/uL Immature Gran # (Auto) (0.01-0.20) K/uL ESR (0-30) mm/hr PT (9.0-12.0) Seconds INR (0.9-1.1) Sodium (136-145) mmol/L Potassium (3.5-5.1) mmol/L Glucose 127 H (70-99(Fasting)) mg/dl Lactate (0.4-2.0) mmol/L Calcium 7.6 L 7.6 L (8.6-10.3) mg/dl Troponin I High Sens 64.5 H* D (0-14) pg/ml C-Reactive Protein (0-0.5) mg/dl Total Protein 5.2 L D (6.0-8.3) gm/dl Albumin 2.7 L (3.4-5.0) gm/dl Procalcitonin (0-0.5) ng/ml Urine Appearance (Clear) Ur Specific [place] (1.000-1.030) Urine Protein (Negative) Urine Blood (Negative) Urine WBC (Auto) (0-5) /hpf U Epithel Cells (Auto) (0-5) /lpf SARS-CoV-2 (PCR) (NotDetected) Diagnostic Findings Head CT 08/03/23 16:54 CT SCAN OF THE BRAIN WITHOUT IV CONTRAST CLINICAL HISTORY: Headache. COMPARISON STUDY: No priors. TECHNIQUE: Unenhanced axial CT scan of the brain is performed from the vertex to the skull base. A dose lowering technique was utilized adhering to the principles of ALARA. FINDINGS: Brain parenchyma: The brain parenchyma is normal in appearance. There is no hemorrhage, mass effect, or evidence of acute territorial ischemia by CT criteria. Pa-white matter differentiation is preserved. No extra-axial fluid collection is seen. Ventricles, sulci, cisterns: Normal in configuration. Intracranial vasculature: The visualized intracranial vasculature at the skull base is normal in appearance. Calvarium: Unremarkable. Sinuses and mastoids: There is moderate mucosal thickening within the maxillary antra and ethmoid sinuses. Air-fluid levels are seen within the maxillary sinuses. There is subtotal opacification and fluid within the sphenoid sinuses. Trace mucosal thickening is seen in the frontal sinuses. The mastoid air cells are well pneumatized. Orbits: The bony orbits are grossly intact. IMPRESSION: 1. There is no hemorrhage, mass effect, or evidence of acute territorial ischemia by CT criteria. 2. Pansinus disease as above. Correlate clinically for evidence of acute si nusitis. ACT 112: Negative or not required by law. Electronically signed by: Jamey Meyer M.D. 08/03/2023 5:47 PM Soft Tissue Neck CT 08/03/23 16:54 CT SCAN OF THE NECK WITH IV CONTRAST CLINICAL HISTORY: Sore throat. COMPARISON STUDY: No priors. TECHNIQUE: Following the IV administration of 85 cc of Optiray 320, CT scan of the soft tissues of the neck was performed from the skull base to the upper chest. Images are reviewed in the axial, sagittal, and coronal planes. IV contrast was administered without complication. A dose lowering technique was utilized adhering to the principles of ALARA. FINDINGS: Pharynx: The pharyngeal soft tissues are normal as imaged. The pharyngeal airway is widely patent. There is no evidence of mass lesion. The vocal cords are symmetric. The parapharyngeal fat is well maintained. The prevertebral/retropharyngeal soft tissues are within normal limits. The epiglottis is normal. Lymphadenopathy: There are numerous small cervical lymph nodes which are not pathologically enlarged by size criteria. Thyroid: Normal in size and heterogeneous in attenuation. Salivary glands: The parotid and submandibular glands are within normal limits. Brain parenchyma: The visualized brain parenchyma at the skull base is normal in appearance. Vascular structures: The carotid arteries and jugular veins are patent bilaterally. Moderate atherosclerotic calcification is seen in the carotid bulbs. Skeletal structures: The skeletal structures are osteopenic. Imaged portions of the calvarium at the skull base are within normal limits. The cervical spine appears intact. Sinuses and mastoids: There is moderate mucosal thickening within the maxillary antra and ethmoid sinuses. Air-fluid levels are seen within the maxillary sinuses. There is subtotal opacification and fluid within the sphenoid sinuses. The mastoid air cells are well pneumatized. Lung apices: Visualized apical lung parenchyma is clear. Dentition: There is a large periapical lucency involving the most posterior left maxillary molar. IMPRESSION: 1. No acute abnormality is seen in the neck. 2. Paranasal sinus disease as above. Correlate clinically for evidence of sinusitis. 3. There are numerous cervical chain lymph nodes. These are not pathologically enlarged by size criteria and may be reactive. Cortical clinically. 4. A large apical lucency is seen involving the most posterior left maxillary molar. Follow up with dentistry is recommended. ACT 112: Negative or not required by law. Electronically signed by: Jamey Meyer M.D. 08/03/2023 5:39 PM Venous Doppler Study 08/04/23 12:18 ULTRASOUND LEFT LOWER EXTREMITY VENOUS CLINICAL HISTORY: Left leg swelling and pain. Covid. COMPARISON STUDY: No priors. TECHNIQUE: Real-time, grayscale, and color Doppler sonography of the deep veins of the left lower extremity was performed from the inguinal crease to the calf. Compression and augmentation were utilized. FINDINGS: There is no sonographic evidence of deep venous thrombosis identified in the left lower extremity. The common femoral, superficial femoral, and popliteal veins are patent and normally compressible. The greater saphenous vein and the profunda femoris vein at the junction with the common femoral vein are clear. The visualized calf veins are patent. IMPRESSION: There is no sonographic evidence of deep venous thrombosis identified in the left lower extremity. ACT 112: Negative or not required by law. Electronically signed by: Jamey Meyer M.D. 08/04/2023 2:39 PM PG Care Time/CCT Total # of Minutes Spent Total Time Spent with Patient: Total time spent is greater than 50% in coordination of care (as documented) at patient's floor/unit and/or counseling patient: Coding Level of Care Code 41483 SUB INP/OBS CARE 2/35MIN Diagnoses Sepsis A41.9 Sepsis acute organ dysfunction status: unspecified Sepsis type: sepsis due to unspecified organism Sore throat J02.9 COVID-19 U07.1 Pneumonia J18.9 Laterality: unspecified laterality Lung location: unspecified part of lung Pneumonia type: due to unspecified organism Rash R21 Hyponatremia E87.1 Elevated troponin R79.89 (1) Sepsis Sepsis acute organ dysfunction status: unspecified Sepsis type: sepsis due to unspecified organism Qualified Code(s): A41.9 - Sepsis, unspecified organism (4) Pneumonia Laterality: unspecified laterality Lung location: unspecified part of lung Pneumonia type: due to unspecified organism Qualified Code(s): J18.9 - Pneumonia, unspecified organism
[2023-08-04] MEDS ORDERED: diphenhydrAMINE 50 MG/ML VIAL IV STA (17:54)
[2023-08-04] MEDS: ENOXAPARIN INJ 40 MG/0.4 ML SYR SQ SCH (18:43)
[2023-08-05] MEDS: PIPERACILLIN/TAZOBACTAM 4.5 GM in DEXTROSE 5% MINI-B 100 ML IV SCH ×3 (01:32→16:01)
[2023-08-05] MEDS: DOXYCYCLINE HYCLATE 100 MG in DEXTROSE 5% MINI-B 100 ML IV SCH ×2 (06:40→17:40)
[2023-08-05] MEDS: PLASMA-LYTE A 1,000 ML IV SCH ×2 (06:41→14:01)
[2023-08-05 07:42] LABS: Hemoglobin 9.4 g/dl (12.0-16.0); Mean Corpuscular Hemoglobin 29.7 pg (25.0-34.0); Mean Corpuscular Hgb Conc 34.8 g/dL (32.0-36.0); Mean Corpuscular Volume 85.4 fL (80.0-100.0); Mean Platelet Volume 10.3 fL (9.4-12.4); Platelet Count 251 K/uL (130-400); RDW Coefficient of Variation 13.3 % (11.5-14.5); Red Blood Count 3.16 M/uL (4.20-5.40); White Blood Count 25.12 K/ul (4.8-10.8)
[2023-08-05 08:00] LABS: Basophils # (auto) 0.05 K/uL (0.00-0.20); Basophils % (auto) 0.2 %; Echinocytes 1+; Eosinophils # (auto) 0.02 K/uL (0.00-0.50); Eosinophils % (auto) 0.1 %; Immature Granulocytes # (auto) 0.31 K/uL (0.01-0.20); Immature Granulocytes % (auto) 1.2 %; Lymphocytes # (auto) 0.68 K/uL (1.20-3.40); Lymphocytes % (auto) 2.7 %; Monocytes # (auto) 0.41 K/uL (0.11-0.59); Monocytes % (auto) 1.6 %; Neutrophils # (auto) 23.65 K/uL (1.40-6.50); Neutrophils % (auto) 94.2 %; Polychromasia 1+
[2023-08-05] MEDS: PSYLLIUM or GUAR GUM FIBER POWDER PACKET PO SCH (08:14)
[2023-08-05] MEDS: FEXOFENADINE HCL 180 MG TAB PO SCH (08:14)
[2023-08-05 08:57] LABS: Calcium 7.8 mg/dl (8.6-10.3); Creatinine Clr Calc Pharmacy 82.8 ml/min; Est GFR (African American) 110.8 ml/min; Est GFR (Non-African American) 95.6 ml/min
--- NOTE | 2023-08-05 09:21 | Infectious Disease Progress Nt ---
Date of Service August 05, 2023 Assessment & Plan (1) COVID-19: (2) Elevated troponin: (3) Pharyngitis: (4) Fever: (5) Leukocytosis: (6) Rash: (7) Erythema marginatum: Plan Liudmila Frazier is a 63-year-old woman with history of tonsillectomy (at age 5) who presents to the ED on 08/03/23 with sore throat, diffuse rash, cough, fever, sore throat, dysgeusia, hand and foot swelling, found to be Covid-19+, with fevers, elevated troponin (peak 82), ESR 81 CRP 29. ID is consulted for Covid-19 and evaluation of fevers. Concern for hyperinflammatory response to Covid-19 including MIS-A. The patients D1 of Covid-19 symptoms was 07/24/23. Without hypoxemia, and >10 days out from sx, thus would not give remdesivir. Concern that patients clinical picture may represent MIS-A or other systemic inflammatory response/rheumatologic disease due to Covid-19 infection. Regarding MIS-A, pt with rash but does not have non-purulent conjunctivitis; she does have elevated ESR and procalcitonin (though these are nonspecific) and a +SARS-CoV-2 test. Also with hypotension to SBP 80s-90 and elevated troponin with a peak of 82 which could be c/f myocarditis/pericarditis. No chest pain; TTE without pericardial effusion though low quality study. Appreciate cardiology involvement, and may consider cardiac MRI for evaluation of myocarditis given the high troponin (appears out of proportion to demand ischemia). Awaiting IL-6. Ferritin normal though this was collected >12h after steroids. Have initiated methylprednisolone with improvement in symptoms but would continue to closely monitor. Would consider starting IVIG and anakinra as well. Case definition of MIS-A: https://www.cdc.gov/mis/mis-a/hcp.html Case report with steroids, IVIG, anakinra: https://www.acpjournals.org/doi/10.7326/aimcc.1.0066#F2 Dosing for MIS-C (a similar and more well-described syndrome in children): https://www.lxvas81ommbvnifkzdcssrlyod.nih.gov/tables/but-q-wodyik-regimens/ Given the pts leukocytosis and fevers, also checking for other infections including typical bacterial infection. BCx NGTD. Without s/sx of bacterial pneumonia. Initially with severe pharyngitis symptoms though without abscess, pt is s/p tonsillectomy. Some sinusitis on CT though would not expect that to explain the patients severe presentation. Throat PCR negative for Group A Strep, throat cx NGTD, Monospot neg. Mycoplasma pneumoniae PCR (from OP) and serology. Given that there is uncertainty in the etiology of her presentation, as part of the fever evaluation, would also consider a CT ervin-scan. Will also send Histo UrAg. Can continue pip-tazo. If worsening/recurrent fevers, can repeat BCx. If hemodynamic instability, can start IV vancomycin as well. The patients rash has coalescing patches and macules, as well as circular lesionsthe circular lesions appearing to resemble erythema marginatum and less resembling erythema multiforme. This can be associated with Covid-19 as well though is nonspecific and associated with other infections as well. Also considered the possibility of tickborne illness, though pts rash does not appear to be maculopapular and does not resemble erythema migrans. Rickettsia Ab and Anaplasma/Babesia studies pending. Thus far with negative Anaplasma smear, Lyme Ab neg. Can continue doxycycline. ID Problem List: 1.Covid-19 infection 2.Fever, leukocytosis, concern for MIS-A 3.Rash, possible erythema marginatum 4.Pharyngitis 5.Elevated troponin Recommendations: - Continue steroids (methylprednisolone 1-2 mg/kg IV Q12H) - Would consider addition of anakinra and IVIG - Continue doxycycline 100 mg BID (can change to PO if pt tolerating) - Continue pip-tazo 4.5 g IV Q8H - Consider Cardiac MRI. Appreciate cardiology consultation - Consider CT Chest/Abdomen/Pelvis - If worsening/recurrent fevers, can repeat BCx. If hemodynamic instability, can start IV vancomycin as well - F/u: IL-6, HSV-1/2 PCR, Mycoplasma pneumoniae Ab, Mycoplasma PCR (oropharynx), Histo UrAg, Rickettsia Ab, Q fever Ab, Anaplasma DNA PCR, Babesia DNA PCR - Continue to trend ESR/CRP, repeat in ~3 days ID will continue to follow, but does not monitor the chart or round over the weekend; covering physician can be contacted at [phone] ([facility] call center) for telephonic consultation if needed. I will resume care of the ID service on Tuesday. Raegan Skaggs MD, MHS Infectious Diseases [facility] direct line: [phone] Admission and Anticipated Discharge Date Admission Date: August 03, 2023 Subjective Subsequent visit was provided via telemedicine using two-way real-time interactive telecommunication between the patient and the telemedicine provider. For the duration of the visit, the provider was performing the assessment from a different facility than the patient. This includesuse of bluetooth stethoscope forauscultationperformed by the telepresenter that the telemedicine provider can hear if described in the physical exam. Certified Financial [employer]anner contact information: Please call [facility] Call Center . (Phone Number For Physician Use Only) After establishing a telemedicine visit, patient was: Patient was verified with two unique identifiers, Patient/authorized rep acknowledged consent and understanding and Gave permission to continue telehealth session Time Spent with Patient: Subsequent => 55 min - Started on steroids yesterday - WBC 31->25, afebrile - Says she feels the best that she has in many days, with more energy. - Having loose BMs, 3 BMs/day, C. diff neg - Having a mild dry cough. No chest pain, no palpitations, no shortness of breath. No joint pain. Rash is still present, some areas with improvement and others persistent. - Improved swelling in hands and feet Physical Exam Constitutional: Exam obtained with aid of in-person telepresenter. General: Well-appearing, no acute distress HEENT: Conjunctivae non-injected, sclerae anicteric. MMM, OP clear. CV: Unable to tele-auscultate due to technical difficulties; per telepresenter: RRR, normal S1/S2; no murmurs, rubs, or gallops. Resp: Unable to tele-auscultate due to technical difficulties; per telepresenter: LLL crackles that clear with cough. Respirations nonlabored. Abd: Soft, nontender, nondistended. Normal bowel sounds throughout. No masses or organomegaly. Ext: Warm and well-perfused. Improved swelling in hands and feet. Skin: Erythematous macules and patches with some coalescing, and some with a more circular appearance. Flat, no raised papules. Area over lower abdomen with circular shaped rings and more violaceous appearance. Involving bilateral upper and lower extremities, including faint patches present on bilateral palms and soles. Nontender, mildly pruritic. Today with more lesions on upper chest, and some reduction in erythema over upper extremities Neuro: Alert & interactive. Grossly non-focal. Weakness in bilateral upper and lower extremities Psych: Pleasant, appropriate. Results & Data Vital Signs (Past 12 Hours) Vital Signs Temp Pulse Pulse Pulse Resp BP BP 08/05/23 08:00 08/05/23 07:52 36.7 C 95 H 16 119/71 08/05/23 04:37 36.7 C 114 H 17 117/72 08/05/23 00:00 105 H 08/04/23 23:23 36.6 C 102 H 17 114/71 Pulse Ox O2 Del Method 08/05/23 08:00 Room Air 08/05/23 07:52 96 Room Air 08/05/23 04:37 93 Room Air 08/05/23 00:00 08/04/23 23:23 95 Room Air Diagnostic Findings Diagnostics: 08/04 TTE Technically limited. No pericardial effusion. Mild MR, trace TR. 08/03/23 CT neck soft tissue 1. No acute abnormality is seen in the neck. 2. Paranasal sinus disease as above. Correlate clinically for evidence of sinusitis. 3. There are numerous cervical chain lymph nodes. These are not pathologically enlarged by size criteria and may be reactive. Cortical clinically. 4. A large apical lucency is seen involving the most posterior left maxillary molar. Follow up with dentistry is recommended. 08/03/23 CT head Sinuses and mastoids: There is moderate mucosal thickening within the maxillary antra and ethmoid sinuses. Air-fluid levels are seen within the maxillary sinuses. There is subtotal opacification and fluid within the sphenoid sinuses. Trace mucosal thickening is seen in the frontal sinuses. The mastoid air cells are well pneumatized. 1. There is no hemorrhage, mass effect, or evidence of acute territorial ischemia by CT criteria. 1.Pansinus disease as above. Correlate clinically for evidence of acute sinusitis. Micro Summary: 08/05 Stool C. diff neg 08/04 HSV-1/2 PCR pending 08/04 Histo UrAg pending 08/04 Mycoplasma IgG/IgM pending 08/03 Monospot negative 08/03 UCx NGTD 08/03 BCx x2 NGTD 08/03 throat cx light nl kezia preliminary, final cx pending 08/03 MRSA nares neg 08/03 respiratory pathogen panel: SARS-CoV-2 detected. All others negative including M. pneumoniae PCR. 08/03: Anaplasma smear neg, Babesia smear neg 08/03 Rickettsia IgG Ab: p 08/03 Ehrlichia PCR: pending 08/03 Babesia PCR: pending 08/03 Lyme IgG Ab neg, IgM Ab neg 08/03 Q fever Ab: p 08/03 Typhus fever Ab: p 08/03 Group A Strep throat PCR: not detected 08/03 UA: 10-30 WBCs, 0-4 RBCs, >30 epithelial Antibiotic Summary: pip-tazo (08/03-present) doxycycline (08/03-present) Methylprednisolone (08/04-present)
[2023-08-05] MEDS: methylPREDNISolone 80 MG in SYRINGE 0 ML IV SCH ×2 (12:11→21:15)
[2023-08-05] MEDS ORDERED: Octagam 10% IVIG 5 gram bottle IV SCH (13:00)
[2023-08-05] MEDS: Octagam 10% IVIG 20 gram bottle IV SCH ×4 (13:44→16:36)
[2023-08-05] MEDS ORDERED: SODIUM CHLORIDE 0.9% IV ONE (14:15)
[2023-08-05] MEDS ORDERED: TOCILIZUMAB IV ONE (14:15)
--- NOTE | 2023-08-05 15:05 | CT Scan Report ---
CT SCAN OF THE ABDOMEN AND PELVIS WITHOUT IV CONTRAST CLINICAL HISTORY: Fever. Leukocytosis. COMPARISON STUDY: No priors. TECHNIQUE: CT scan of the abdomen and pelvis is performed from the lung bases to the proximal femora. Images are reviewed in the axial, sagittal, and coronal planes. IV contrast was not administered for this examination as per the referring clinician. Note that the examination was performed in suboptim al fashion without oral and IV contrast. A dose lowering technique was utilized adhering to the princ iplnéstor of SONY. CT DOSE: 1051.28 mGy.cm FINDINGS: Lung bases: The heart is normal in size and without pericardial effusion. There are small pleural eff usions with dependent consolidation, left greater than right. Liver: The unenhanced liver is enlarged, measuring 22.2 cm in length. The liver is otherwise normal i n contour and attenuation There is no intrahepatic biliary ductal dilatation. Small hepatic cysts brittni sure up to 1.6 cm. Gallbladder: The gallbladder wall is markedly thickened and edematous. Spleen: Normal in size and attenuation. Pancreas: The unenhanced pancreas is grossly unremarkable. Adrenal glands: Unremarkable. Kidneys: The unenhanced kidneys are normal in size and without hydronephrosis. There are no renal jil culi identified. There is no evidence of contour deforming renal mass lesion. Abdominal vasculature: The abdominal aorta is normal in course and caliber noting mild atheroscleroti c calcification. Bowel: There is no bowel obstruction. The appendix is not visualized. Peritoneum: There is a small volume of pelvic ascites. No intraperitoneal free air is seen. There is a small fat-containing umbilical hernia. Lymphadenopathy: None. Pelvic viscera: The bladder wall is thickened with surrounding infiltration. The uterus is heterogene ous and contains calcified fibroids. No adnexal lesion is seen. Skeletal structures: The skeletal structures are osteopenic. No lytic or blastic lesions are seen. Soft tissues: There is infiltration and edema of the pelvic and perineal soft tissues. No soft tissue gas is identified. IMPRESSION: 1. Suboptimal examination without oral and IV contrast. 2. There are small pleural effusions with dependent consolidation, left greater than right. Correlate clinically for evidence of pneumonia/aspiration pneumonitis. 3. The gallbladder wall is markedly thickened and edematous. This is nonspecific and could be related to fluid overload/hepatic inflammation. If there is clinical concern for acute cholecystitis a nucle ar hepatobiliary scan should be obtained. 4. The bladder wall is diffusely thickened with surrounding infiltration. Correlate with clinical fin dings and urinalysis for evidence of cystitis. 5. There is infiltration and edema of the pelvic and perineal soft tissues. No soft tissue gas is see n. This may be related to fluid overload/anasarca. Correlate clinically for evidence of cellulitis. 6. Small volume pelvic ascites. 7. Fibroid uterus. 8. Additional findings as above. ACT 112: Negative or not required by law. Electronically signed by: Jamey Meyer M.D. 08/05/2023 3:03 PM
--- NOTE | 2023-08-05 15:09 | CT Scan Report ---
CT chest diagnostic wo con CLINICAL HISTORY: rule out any source of infection TECHNIQUE: Multidetector row helical CT of the chest was performed. Coronal and sagittal reformations were obtained. Automated dose lowering techniques and/or adjustment according to patient size were u tilized for this exam. Comparison: None available at the time of this dictation. FINDINGS: Lungs and pleura: Trace bilateral pleural effusions are seen. Atelectasis is noted. Right upper lobe prominent nodularity is seen most prominent in the right upper lobe and left lower lobe, with interst itial thickening. Heart and pericardium: Heart size is normal. No pericardial effusion. Vessels: Unremarkable. Mediastinum and stephanie: Subcentimeter lymph nodes are seen. Chest wall and lower neck: Unremarkable. Abdomen: Unremarkable. Bones: Unremarkable. IMPRESSION: Nodularity in the bilateral lungs are compatible with infectious/inflammatory process. Bilateral atel ectasis is seen with trace pleural effusions. ACT 112: Negative or not required by law. Electronically signed by: Jamil Kim M.D. 08/05/2023 3:07 PM
--- NOTE | 2023-08-05 15:56 | Hospitalist Progress Note ---
Date of Service August 05, 2023 Assessment & Plan (1) Sepsis: Plan: Patient met criteria for sepsis. Was given fluid bolus Lactic acidosis resolved Being treated with IV Zosyn and doxycycline. Continue White count Coming down 25 today Blood cultures and urine cultures negative so far infectious disease involved There is concern for severe inflammatory reaction to COVID 19 Patient presents with rash, high procalcitonin level, high inflammatory markers, elevated troponin. there is concern for MIS-A patient received a dose of IV Solu-Medrol 80 mg yesterday and had a very good response No sore throat today Aches and pains have improved significantly ESR and CRP are coming down Continue to check daily inflammatory markers including ESR, CRP, ferritin Ordered IL-6 which is a send out Infectious workup so far negative Mycoplasma pneumonia oropharyngeal swab pending Infectious disease ordered Tocilizumab I ordered further doses of Solu-Medrol 80 mg IV twice daily CT chest abdomen and pelvis done to evaluate for any source of infection. Gallbladder is markedly thickened and edematous. Patient does not have any right upper quadrant pain. She is already on Zosyn. Suspect that this could be a nonspecific sign of fluid overload As the patient also has some pelvic ascites and edema of pelvic soft tissues. (2) Sore throat: Plan: Suspected source. No one sided swelling or pus seen on exam. CT neck soft tissue fairly unremarkable Group A strep PCR negative. throat culture so far negative Sore throat resolved (3) COVID-19: Plan: her symptoms began on 07/24. She is outside the window for antivirals. No hypoxia. Continue isolation precautions most likely has hyper inflammatory response to COVID: MIS-A (4) Pneumonia: Plan: Very mild changes on CXR And CT chest- doubtful this is causing her severe sepsis but will cover for atypical infection with doxycycline in addition to Zosyn. Biofire positive for COVID (5) Rash: Plan: No mucous membrane involvement, blistering to suspect Bhaskar Robert. Not characteristic of erythema marginatum at this time. ?viral exanthem ? Part of hyper inflammatory reaction from COVID (6) Hyponatremia: Plan: Suspect this is nutritional Improving Reduce IV fluid rate as developing ascites and edema. (7) Elevated troponin: Plan: No chest pain or significant shortness of breath to suggest ACS TTE was clinically difficult to read Concern for posterior wall and lateral wall hypokinesis ? viral Myocarditis EF 55 to 60% Awaiting cardiology consult Plan VTE Prophylaxis - start Lovenox Diet - regular Admission and Anticipated Discharge Date Admission Date: August 03, 2023 Subjective patient says that she feels much better today. She is able to move more freely. Her joint pains and muscle pains have improved significantly. Sore throat has resolved. The rash is less widespread But has cool least further and appears more red today. She was able to get out of bed and go to the bathroom Which is a significant improvement from yesterday as even using a bedpan was a struggle as she was so rigid and achy.. Review of Systems Review of Systems: All systems reviewed & are unremarkable except as noted in Subjective Physical Exam Physical Exam: General: Awake, conversant. Patient is sick appearing. There is a rash noted on her face, abdominal wall, bilateral arms. Heart: S1, S2/regular rate and rhythm, no murmur rubs or gallops Lungs: Clear to auscultation bilaterally. Normal effort Abdomen: Soft/nontender/nondistended. No hepatosplenomegaly Extremities: No clubbing/cyanosis. No edema Behavior: Appropriate, cooperative Results & Data Results & Data Vital Signs (Past 12 Hours) Vital Signs Temp Pulse Pulse Resp BP BP Pulse Ox 08/05/23 15:32 36.7 C 81 18 125/71 97 08/05/23 11:04 36.4 C L 92 H 18 122/72 96 08/05/23 08:00 08/05/23 07:52 36.7 C 95 H 16 119/71 96 08/05/23 04:37 36.7 C 114 H 17 117/72 93 O2 Del Method 08/05/23 15:32 Room Air 08/05/23 11:04 Room Air 08/05/23 08:00 Room Air 08/05/23 07:52 Room Air 08/05/23 04:37 Room Air Laboratory Results Abnormal lab results 08/05/23 Range/Units 05:43 WBC 25.12 H (4.8-10.8) K/ul RBC 3.16 L (4.20-5.40) M/uL Hgb 9.4 L (12.0-16.0) g/dl Hct 27.0 L (37.0-47.0) % Neut # (Auto) 23.65 H (1.40-6.50) K/uL Lymph # (Auto) 0.68 L (1.20-3.40) K/uL Immature Gran # (Auto) 0.31 H (0.01-0.20) K/uL ESR 78 H (0-30) mm/hr Sodium 134 L (136-145) mmol/L BUN/Creatinine Ratio 25.0 H (10-20) Glucose 138 H (70-99(Fasting)) mg/dl Calcium 7.8 L (8.6-10.3) mg/dl Diagnostic Findings Abdomen/Pelvis CT 08/05/23 13:13 CT SCAN OF THE ABDOMEN AND PELVIS WITHOUT IV CONTRAST CLINICAL HISTORY: Fever. Leukocytosis. COMPARISON STUDY: No priors. TECHNIQUE: CT scan of the abdomen and pelvis is performed from the lung bases to the proximal femora. Images are reviewed in the axial, sagittal, and coronal planes. IV contrast was not administered for this examination as per the referring clinician. Note that the examination was performed in suboptimal fashion without oral and IV contrast. A dose lowering technique was utilized adhering to the principles of ALARA. CT DOSE: 1051.28 mGy.cm FINDINGS: Lung bases: The heart is normal in size and without pericardial effusion. There are small pleural effusions with dependent consolidation, left greater than right. Liver: The unenhanced liver is enlarged, measuring 22.2 cm in length. The liver is otherwise normal in contour and attenuation There is no intrahepatic biliary ductal dilatation. Small hepatic cysts measure up to 1.6 cm. Gallbladder: The gallbladder wall is markedly thickened and edematous. Spleen: Normal in size and attenuation. Pancreas: The unenhanced pancreas is grossly unremarkable. Adrenal glands: Unremarkable. Kidneys: The unenhanced kidneys are normal in size and without hydronephrosis. There are no renal calculi identified. There is no evidence of contour deforming renal mass lesion. Abdominal vasculature: The abdominal aorta is normal in course and caliber noting mild atherosclerotic calcification. Bowel: There is no bowel obstruction. The appendix is not visualized. Peritoneum: There is a small volume of pelvic ascites. No intraperitoneal free air is seen. There is a small fat-containing umbilical hernia. Lymphadenopathy: None. Pelvic viscera: The bladder wall is thickened with surrounding infiltration. The uterus is heterogeneous and contains calcified fibroids. No adnexal lesion is seen. Skeletal structures: The skeletal structures are osteopenic. No lytic or blastic lesions are seen. Soft tissues: There is infiltration and edema of the pelvic and perineal soft tissues. No soft tissue gas is identified. IMPRESSION: 1. Suboptimal examination without oral and IV contrast. 2. There are small pleural effusions with dependent consolidation, left greater than right. Correlate clinically for evidence of pneumonia/aspiration pneumonitis. 3. The gallbladder wall is markedly thickened and edematous. This is nonspecific and could be related to fluid overload/hepatic inflammation. If there is clinical concern for acute cholecystitis a nuclear hepatobiliary scan should be obtained. 4. The bladder wall is diffusely thickened with surrounding infiltration. Correlate with clinical findings and urinalysis for evidence of cystitis. 5. There is infiltration and edema of the pelvic and perineal soft tissues. No soft tissue gas is seen. This may be related to fluid overload/anasarca. Correlate clinically for evidence of cellulitis. 6. Small volume pelvic ascites. 7. Fibroid uterus. 8. Additional findings as above. ACT 112: Negative or not required by law. Electronically signed by: Jamey Meyer M.D. 08/05/2023 3:[address] 08/05/23 13:13 CT chest diagnostic wo con CLINICAL HISTORY: rule out any source of infection TECHNIQUE: Multidetector row helical CT of the chest was performed. Coronal and sagittal reformations were obtained. Automated dose lowering techniques and/or adjustment according to patient size were utilized for this exam. Comparison: None available at the time of this dictation. FINDINGS: Lungs and pleura: Trace bilateral pleural effusions are seen. Atelectasis is noted. Right upper lobe prominent nodularity is seen most prominent in the right upper lobe and left lower lobe, with interstitial thickening. Heart and pericardium: Heart size is normal. No pericardial effusion. Vessels: Unremarkable. Mediastinum and stephanie: Subcentimeter lymph nodes are seen. Chest wall and lower neck: Unremarkable. Abdomen: Unremarkable. Bones: Unremarkable. IMPRESSION: Nodularity in the bilateral lungs are compatible with infectious/inflammatory process. Bilateral atelectasis is seen with trace pleural effusions. ACT 112: Negative or not required by law. Electronically signed by: Jamil Kim M.D. 08/05/2023 3:07 PM PG Care Time/CCT Total # of Minutes Spent Total Time Spent with Patient: Total time spent is greater than 50% in coordination of care (as documented) at patient's floor/unit and/or counseling patient: Coding Level of Care Code 99634 SUB INP/OBS CARE MIN Diagnoses Sepsis A41.9 Sepsis acute organ dysfunction status: unspecified Sepsis type: sepsis due to unspecified organism Sore throat J02.9 COVID-19 U07.1 Pneumonia J18.9 Laterality: unspecified laterality Lung location: unspecified part of lung Pneumonia type: due to unspecified organism Rash R21 Hyponatremia E87.1 Elevated troponin R79.89 (1) Sepsis Sepsis acute organ dysfunction status: unspecified Sepsis type: sepsis due to unspecified organism Qualified Code(s): A41.9 - Sepsis, unspecified organism (4) Pneumonia Laterality: unspecified laterality Lung location: unspecified part of lung Pneumonia type: due to unspecified organism Qualified Code(s): J18.9 - Pneumonia, unspecified organism
--- NOTE | 2023-08-05 17:07 | Cardiology Consultation ---
Date of Consultation August 05, 2023 Assessment & Plan (1) Elevated troponin: Plan 1. Elevated troponin: Quite common in the setting of COVID-19 infection. Overall of a bauer is quite low. Preserved LV systolic function without definite evidence of regional wall motion abnormalities. No clinical symptoms of heart failure or cardiac disease. Currently being treated for systemic inflammatory process likely related to a viral illness. This point I would simply recommend continued antiviral therapy and supportive care. I do not believe any additional imaging or specific cardiac treatment is warranted in the absence of new findings or worsening symptoms. History of Present Illness Reason for Consultation: ID request Requesting Physician: Jenna Attending Physician: Corin West MD History of Present Illness The patient is a 7-year-old woman without a known history of cardiac disease who began have symptoms of a sore throat approximately 10 days ago. The symptoms waxed and waned in severity but eventually became progressive to the point where she had difficulty speaking. She also developed additional symptoms such as subjective fevers and chills, swelling in her limbs, generalized body aches and a diffuse rash. She presented to emergency room for evaluation. Part of her evaluation involved measurement of cardiac biomarkers which were mildly elevated. She was felt to have a systemic inflammatory response likely related to COVID-19. And cardiology evaluation was requested by the Infectious Disease Service. The patient states she is currently feeling better. She is not as stiff and rigid as she was at the time of admission. She can move her neck and her voice is better. Her sore throat is also improved. She denies significant breathing difficulty at any time. She did not report significant chest pain or chest pressure. No pressure with deep inspiration. Leading up to her current illness she claims to be very active individual. She is limited to some degree by orthopedic disease, but did not endorse symptoms of exertional dyspnea or chest pain. 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 She also carries Stax of male up several steps at work and did not endorse cardiac symptoms. Allergies Allergy/AdvReac Type Severity Reaction Status Date / Time No Known Allergies Allergy Verified 08/03/23 18:17 Home Medications Medication Instructions Recorded Confirmed Type No Known Home Medications 08/03/23 08/03/23 History Patient History Medical History History of basal cell carcinoma History of abnormal cervical Pap smear Surgical History S/P tonsillectomy Family History Father Bladder cancer Denies family history of Ovarian cancer Prostate cancer Heart disease Breast cancer Colorectal cancer Social History Smoking Status: Former smoker Age Started Using Tobacco: 19; Age Quit Using Tobacco: 43; Second Hand Exposure: No; Do You Dip or Chew Tobacco: No; Hx Alcohol Use: Yes Alcohol type: beer Hx Substance Use: No Preferred Language: Sinhala Communication Ability: Effective Digital Media Buyer Required: No Beliefs That Will Affect Care: None marital status: Current Living Situation: Family Current Living Situation Comment: Lives with ex-Justice current occupational status: employed Other Information That Helps Us Care for You: No Feels Safe at Home: Yes Safety Concerns: Feels Safe At This Time Dental Care, Regularly: Yes Physical Activity Frequency: 1-2 Times per Week Assistive Devices: None Review of Systems Review of Systems: Per HPI Physical Exam Physical Exam: She is alert and oriented x3. Mood affect appear normal. She answered all questions appropriately. HEENT: Sclerae are anicteric. Pupils are equal and reactive to light and accommodation. Extraocular movements were intact. Neuro: Cranial nerves intact Lungs: Lungs are clear to auscultation bilaterally. There are no rales wheezes or rhonchi. She has normal respiratory effort without use of accessory muscles. There is normal pulmonary excursion. Cardiac: The rhythm was regular. S1 and S2 were normal. There are no murmurs on examination. The PMI was not markedly displaced on palpation. Abdomen: Nondistended Extremities: Patient has bilateral radial pulses that are equal in intensity. There is no evidence cyanosis or clubbing. There was no evidence of significant peripheral edema bilaterally. Skin: Diffuse petechial rash Results & Data Vital Signs (Past 12 Hours) Vital Signs Temp Pulse Resp BP BP Pulse Ox O2 Del Method 08/05/23 15:32 36.7 C 81 18 125/71 97 Room Air 08/05/23 11:04 36.4 C L 92 H 18 122/72 96 Room Air 08/05/23 08:00 Room Air 08/05/23 07:52 36.7 C 95 H 16 119/71 96 Room Air Laboratory Results Abnormal Lab Results 08/05/23 08/05/23 05:43 07:12 WBC 25.12 H RBC 3.16 L Hgb 9.4 L Hct 27.0 L MCV 85.4 MCH 29.7 MCHC 34.8 RDW Std Deviation 42.0 RDW Coeff of Isai 13.3 Plt Count 251 MPV 10.3 Immature Gran % (Auto) 1.2 Neut % (Auto) 94.2 Lymph % (Auto) 2.7 Quay % (Auto) 1.6 Eos % (Auto) 0.1 Baso % (Auto) 0.2 Neut # (Auto) 23.65 H Lymph # (Auto) 0.68 L Quay # (Auto) 0.41 Eos # (Auto) 0.02 Baso # (Auto) 0.05 Immature Gran # (Auto) 0.31 H Polychromasia 1+ Echinocytes 1+ ESR 78 H Sodium 134 L Potassium 4.0 Chloride 101 Carbon Dioxide 26 Anion Gap 7 BUN 16 Creatinine 0.64 Est Cr Clr Drug Dosing 82.8 Est GFR ( Amer) 110.8 Est GFR (Non-Af Amer) 95.6 BUN/Creatinine Ratio 25.0 H Glucose 138 H Calcium 7.8 L Ferritin 348.0 Stl C. diff Tox B Gene Negative Cdiff Gene Miscellaneous Test 2 Cancelled Diagnostic Findings 08/04/2023 revealed preserved LV systolic function with ejection fraction 55- 60%. Poorly visualization of some basal segments. No definite regional wall motion abnormalities. Mild mitral regurgitation PG Care Time/CCT Total # of Minutes Spent Total Time Spent with Patient: Total time spent is greater than 50% in coordination of care (as documented) at patient's floor/unit and/or counseling patient: Coding Level of Care Code 29864 INT INP/OBS CARE 3/75MIN Diagnoses Elevated troponin R79.89
[2023-08-05] MEDS: ENOXAPARIN INJ 40 MG/0.4 ML SYR SQ SCH (17:40)
[2023-08-06] MEDS: PLASMA-LYTE A 1,000 ML IV SCH ×2 (00:44→10:33)
[2023-08-06] MEDS: PIPERACILLIN/TAZOBACTAM 4.5 GM in DEXTROSE 5% MINI-B 100 ML IV SCH ×3 (00:48→17:10)
[2023-08-06 06:31] LABS: Hematocrit (blood only) 26.9 % (37.0-47.0); Hemoglobin 9.1 g/dl (12.0-16.0); Mean Corpuscular Hemoglobin 29.4 pg (25.0-34.0); Mean Corpuscular Hgb Conc 33.8 g/dL (32.0-36.0); Mean Corpuscular Volume 86.8 fL (80.0-100.0); Mean Platelet Volume 10.5 fL (9.4-12.4); Platelet Count 258 K/uL (130-400); RDW Coefficient of Variation 13.6 % (11.5-14.5); White Blood Count 9.35 K/ul (4.8-10.8)
[2023-08-06 06:36] LABS: BUN Creatinine Ratio 37.3 (10-20); Calcium 7.7 mg/dl (8.6-10.3); Creatinine Clr Calc Pharmacy 92.4 ml/min; Est GFR (African American) 113.9 ml/min; Est GFR (Non-African American) 98.2 ml/min; Potassium 3.5 mmol/L (3.5-5.1)
[2023-08-06 06:57] LABS: Ferritin 706.4 ng/ml (8-388)
[2023-08-06 07:04] LABS: Basophils # (auto) 0.01 K/uL (0.00-0.20); Basophils % (auto) 0.1 %; Eosinophils # (auto) 0.01 K/uL (0.00-0.50); Eosinophils % (auto) 0.1 %; Immature Granulocytes # (auto) 0.19 K/uL (0.01-0.20); Lymphocytes # (auto) 0.81 K/uL (1.20-3.40); Lymphocytes % (auto) 8.7 %; Monocytes # (auto) 0.34 K/uL (0.11-0.59); Monocytes % (auto) 3.6 %; Neutrophils # (auto) 7.99 K/uL (1.40-6.50); Neutrophils % (auto) 85.5 %
[2023-08-06] MEDS: FEXOFENADINE HCL 180 MG TAB PO SCH (08:02)
[2023-08-06] MEDS: PSYLLIUM or GUAR GUM FIBER POWDER PACKET PO SCH (08:02)
[2023-08-06] MEDS: methylPREDNISolone 80 MG in SYRINGE 0 ML IV SCH ×2 (08:02→20:43)
[2023-08-06] MEDS ORDERED: Octagam 10% IVIG 5 gram bottle IV SCH (09:00)
[2023-08-06] MEDS: Octagam 10% IVIG 20 gram bottle IV SCH ×3 (09:51→12:50)
--- NOTE | 2023-08-06 13:31 | Hospitalist Progress Note ---
Date of Service August 06, 2023 Assessment & Plan (1) Sepsis: Plan: Patient met criteria for sepsis. Was given fluid bolus Lactic acidosis resolved Being treated with IV Zosyn and doxycycline. Switch IV doxycycline to p.o. White count has normalized today Blood cultures and urine cultures negative so far infectious disease involved There is concern for severe inflammatory reaction to COVID 19 Patient presents with rash, high procalcitonin level, high inflammatory markers, elevated troponin. there is concern for MIS-A patient is on IV Solu-Medrol 80 mg IV twice daily Received a dose of tocilizumab yesterday Received IVIG No sore throat today Aches and pains have improved significantly ESR coming down Continue to check daily inflammatory markers including ESR, CRP, ferritin Ordered IL-6 which is a send out Infectious workup so far negative Mycoplasma pneumonia oropharyngeal swab pending CT chest abdomen and pelvis done to evaluate for any source of infection. Gallbladder is markedly thickened and edematous. Patient does not have any r ight upper quadrant pain. She is already on Zosyn. Suspect that this could be a nonspecific sign of fluid overload As the patient also has some pelvic ascites and edema of pelvic soft tissues. (2) Sore throat: Plan: Suspected source. No one sided swelling or pus seen on exam. CT neck soft tissue fairly unremarkable Group A strep PCR negative. throat culture so far negative Sore throat resolved (3) COVID-19: Plan: her symptoms began on 07/24. She is outside the window for antivirals. No hypoxia. Continue isolation precautions most likely has hyper inflammatory response to COVID: MIS-A (4) Pneumonia: Plan: Very mild changes on CXR And CT chest- doubtful this is causing her severe sepsis but will cover for atypical infection with doxycycline in addition to Zosyn. Biofire positive for COVID (5) Rash: Plan: No mucous membrane involvement, blistering to suspect Bhaskar Robert. Not characteristic of erythema marginatum at this time. ?viral exanthem ? Part of hyper inflammatory reaction from COVID improving (6) Hyponatremia: Plan: Suspect this is nutritional Resolved as patient is eating better discontinue (7) Elevated troponin: Plan: No chest pain or significant shortness of breath to suggest ACS TTE was clinically difficult to read ? viral Myocarditis EF 55 to 60% cardiology. Recommended treatment of underlying inflammation Plan VTE Prophylaxis - Lovenox Diet - regular Admission and Anticipated Discharge Date Admission Date: August 03, 2023 Subjective patient feels remarkably better today. She is able to move around in her room. Her appetite is back. She is eating better. Sore throat has resolved. Muscle aches, joint pains have resolved. Rash has improved. Review of Systems Review of Systems: All systems reviewed & are unremarkable except as noted in Subjective Physical Exam Physical Exam: General: Awake, conversant. Heart: S1, S2/regular rate and rhythm, no murmur rubs or gallops Lungs: Clear to auscultation bilaterally. Normal effort Abdomen: Soft/nontender/nondistended. No hepatosplenomegaly Extremities: No clubbing/cyanosis. No edema Behavior: Appropriate, cooperative Results & Data Results & Data Vital Signs (Past 12 Hours) Vital Signs Temp Pulse Resp BP Pulse Ox O2 Del Method 08/06/23 12:06 36.7 C 72 20 143/73 H 95 Room Air 08/06/23 08:05 36.6 C 72 17 134/74 93 Room Air 08/06/23 08:00 Room Air 08/06/23 03:49 36.7 C 69 17 138/73 93 Room Air Laboratory Results Abnormal lab results 08/06/23 Range/Units 05:57 RBC 3.10 L (4.20-5.40) M/uL Hgb 9.1 L (12.0-16.0) g/dl Hct 26.9 L (37.0-47.0) % Neut # (Auto) 7.99 H (1.40-6.50) K/uL Lymph # (Auto) 0.81 L (1.20-3.40) K/uL ESR 66 H (0-30) mm/hr Creatinine 0.59 L (0.6-1.2) mg/dl BUN/Creatinine Ratio 37.3 H (10-20) Glucose 147 H (70-99(Fasting)) mg/dl Calcium 7.7 L (8.6-10.3) mg/dl Ferritin 706.4 H (8-388) ng/ml PG Care Time/CCT Total # of Minutes Spent Total Time Spent with Patient: Total time spent is greater than 50% in coordination of care (as documented) at patient's floor/unit and/or counseling patient: Coding Level of Care Code 73262 SUB INP/OBS CARE 2/35MIN Diagnoses Sepsis A41.9 Sepsis acute organ dysfunction status: unspecified Sepsis type: sepsis due to unspecified organism Sore throat J02.9 COVID-19 U07.1 Pneumonia J18.9 Laterality: unspecified laterality Lung location: unspecified part of lung Pneumonia type: due to unspecified organism Rash R21 Hyponatremia E87.1 Elevated troponin R79.89 (1) Sepsis Sepsis acute organ dysfunction status: unspecified Sepsis type: sepsis due to unspecified organism Qualified Code(s): A41.9 - Sepsis, unspecified organism (4) Pneumonia Laterality: unspecified laterality Lung location: unspecified part of lung Pneumonia type: due to unspecified organism Qualified Code(s): J18.9 - Pneumonia, unspecified organism
[2023-08-06] MEDS: ENOXAPARIN INJ 40 MG/0.4 ML SYR SQ SCH (17:10)
[2023-08-06] MEDS: DOXYCYCLINE HYCLATE 100 MG CAP PO SCH (20:43)
[2023-08-07] MEDS: PIPERACILLIN/TAZOBACTAM 4.5 GM in DEXTROSE 5% MINI-B 100 ML IV SCH ×2 (01:51→08:18)
[2023-08-07 06:23] LABS: Basophils # (auto) 0.03 K/uL (0.00-0.20); Basophils % (auto) 0.3 %; Hematocrit (blood only) 27.6 % (37.0-47.0); Hemoglobin 9.4 g/dl (12.0-16.0); Immature Granulocytes # (auto) 0.41 K/uL (0.01-0.20); Immature Granulocytes % (auto) 4.8 %; Lymphocytes # (auto) 1.03 K/uL (1.20-3.40); Mean Corpuscular Hemoglobin 29.4 pg (25.0-34.0); Mean Corpuscular Hgb Conc 34.1 g/dL (32.0-36.0); Mean Corpuscular Volume 86.3 fL (80.0-100.0); Mean Platelet Volume 10.1 fL (9.4-12.4); Monocytes # (auto) 0.28 K/uL (0.11-0.59); Monocytes % (auto) 3.3 %; Neutrophils # (auto) 6.85 K/uL (1.40-6.50); Neutrophils % (auto) 79.6 %; Nucleated RBC # (auto) 0.03 K/uL (0.00-0.12); Nucleated RBC % (auto) 0.3 %; Platelet Count 333 K/uL (130-400); RDW Coefficient of Variation 13.6 % (11.5-14.5)
[2023-08-07 06:44] LABS: BUN Creatinine Ratio 30.9 (10-20); C Reactive Protein 13.28 mg/dl (0-0.5); Calcium 7.9 mg/dl (8.6-10.3); Creatinine Clr Calc Pharmacy 80.2 ml/min; Est GFR (African American) 108.7 ml/min; Est GFR (Non-African American) 93.7 ml/min; Potassium 3.5 mmol/L (3.5-5.1)
[2023-08-07 07:03] LABS: Ferritin 573.4 ng/ml (8-388)
[2023-08-07] MEDS: PSYLLIUM or GUAR GUM FIBER POWDER PACKET PO SCH (08:18)
[2023-08-07] MEDS: FEXOFENADINE HCL 180 MG TAB PO SCH (08:18)
[2023-08-07] MEDS: methylPREDNISolone 80 MG in SYRINGE 0 ML IV SCH ×2 (09:10→21:08)
[2023-08-07] MEDS: DOXYCYCLINE HYCLATE 100 MG CAP PO SCH ×2 (09:10→21:08)
--- NOTE | 2023-08-07 13:18 | Hospitalist Progress Note ---
Date of Service August 07, 2023 Assessment & Plan (1) Sepsis: Plan: Patient met criteria for sepsis. Was given fluid bolus Lactic acidosis resolved Patient was treated with IV Zosyn and doxycycline. Will continue p.o. doxycycline for now Will discontinue IV Zosyn White count has normalized Blood cultures and urine cultures negative so far infectious disease involved There is concern for severe inflammatory reaction to COVID 19 Patient presents with rash, high procalcitonin level, high inflammatory markers, elevated troponin. there is concern for MIS-A patient is on IV Solu-Medrol 80 mg IV twice daily Received a dose of tocilizumab on 08/05 Received IVIG No sore throat Aches and pains have almost resolved ESR coming down CRP coming down Continue to check daily inflammatory markers including ESR, CRP, ferritin Ordered IL-6 which is a send out Infectious workup so far negative Mycoplasma pneumonia oropharyngeal swab pending CT chest abdomen and pelvis done to evaluate for any source of infection. Gallbladder is markedly thickened and edematous. Patient does not have any right upper quadrant pain. She is already on Zosyn. Suspect that this could be a nonspecific sign of fluid overload As the patient also has some pelvic asc ites and edema of pelvic soft tissues. (2) Sore throat: Plan: Suspected source. No one sided swelling or pus seen on exam. CT neck soft tissue fairly unremarkable Group A strep PCR negative. throat culture so far negative Sore throat resolved (3) COVID-19: Plan: her symptoms began on 07/24. She is outside the window for antivirals. No hypoxia. Continue isolation precautions most likely has hyper inflammatory response to COVID: MIS-A Patient had taken the first COVID shot followed by the first booster dose. (4) Pneumonia: Plan: Very mild changes on CXR And CT chest- doubtful this is causing her severe sepsis but will cover for atypical infection with doxycycline . Discontinue Zosyn. Biofire positive for COVID (5) Rash: Plan: No mucous membrane involvement, blistering to suspect Bhaskar Robert. Not characteristic of erythema marginatum at this time. ?viral exanthem ? Part of hyper inflammatory reaction from COVID improving (6) Hyponatremia: Plan: Suspect this is nutritional Resolved as patient is eating better (7) Elevated troponin: Plan: No chest pain or significant shortness of breath to suggest ACS TTE was clinically difficult to read ? viral Myocarditis EF 55 to 60% cardiology. Recommended treatment of underlying inflammation Plan VTE Prophylaxis - Lovenox Diet - regular Admission and Anticipated Discharge Date Admission Date: August 03, 2023 Subjective patient continues to do well. She says that she feels like she is almost back to her usual baseline. No muscle aches or joint pains. Sore throat has resolved. Rash is much improved. Review of Systems Review of Systems: All systems reviewed & are unremarkable except as noted in Subjective Physical Exam Physical Exam: General: Awake, conversant. Heart: S1, S2/regular rate and rhythm, no murmur rubs or gallops Lungs: Clear to auscultation bilaterally. Normal effort Abdomen: Soft/nontender/nondistended. No hepatosplenomegaly Extremities: No clubbing/cyanosis. No edema Behavior: Appropriate, cooperative Results & Data Results & Data Vital Signs (Past 12 Hours) Vital Signs Temp Pulse Pulse Resp BP BP Pulse Ox 08/07/23 11:52 36.7 C 54 L 17 155/69 H 91 08/07/23 08:08 57 L 08/07/23 08:00 08/07/23 08:00 36.6 C 56 L 17 159/72 H 92 08/07/23 03:35 36.5 C 54 L 14 162/78 H 91 O2 Del Method 08/07/23 11:52 Room Air 08/07/23 08:08 08/07/23 08:00 Room Air 08/07/23 08:00 Room Air 08/07/23 03:35 Room Air Laboratory Results Abnormal lab results 08/07/23 Range/Units 05:47 RBC 3.20 L (4.20-5.40) M/uL Hgb 9.4 L (12.0-16.0) g/dl Hct 27.6 L (37.0-47.0) % Neut # (Auto) 6.85 H (1.40-6.50) K/uL Lymph # (Auto) 1.03 L (1.20-3.40) K/uL Immature Gran # (Auto) 0.41 H (0.01-0.20) K/uL ESR 41 H (0-30) mm/hr Sodium 135 L (136-145) mmol/L BUN/Creatinine Ratio 30.9 H (10-20) Glucose 139 H (70-99(Fasting)) mg/dl Calcium 7.9 L (8.6-10.3) mg/dl Ferritin 573.4 H (8-388) ng/ml C-Reactive Protein 13.28 H (0-0.5) mg/dl PG Care Time/CCT Total # of Minutes Spent Total Time Spent with Patient: Total time spent is greater than 50% in coordination of care (as documented) at patient's floor/unit and/or counseling patient: Coding Level of Care Code 40031 SUB INP/OBS CARE 35MIN Diagnoses Sepsis A41.9 Sepsis acute organ dysfunction status: unspecified Sepsis type: sepsis due to unspecified organism Sore throat J02.9 COVID-19 U07.1 Pneumonia J18.9 Laterality: unspecified laterality Lung location: unspecified part of lung Pneumonia type: due to unspecified organism Rash R21 Hyponatremia E87.1 Elevated troponin R79.89 (1) Sepsis Sepsis acute organ dysfunction status: unspecified Sepsis type: sepsis due to unspecified organism Qualified Code(s): A41.9 - Sepsis, unspecified organism (4) Pneumonia Laterality: unspecified laterality Lung location: unspecified part of lung Pneumonia type: due to unspecified organism Qualified Code(s): J18.9 - Pneumonia, unspecified organism
[2023-08-07] MEDS: ENOXAPARIN INJ 40 MG/0.4 ML SYR SQ SCH (16:56)
[2023-08-07 22:28] LABS: HSV Type 1 DNA Not Detected (Not Detected); HSV Type 1&2 DNA Source Whole Blood; HSV Type 2 DNA Not Detected (Not Detected)
[2023-08-08] MEDS: PSYLLIUM or GUAR GUM FIBER POWDER PACKET PO SCH (07:50)
[2023-08-08] MEDS: FEXOFENADINE HCL 180 MG TAB PO SCH (07:50)
[2023-08-08] MEDS: DOXYCYCLINE HYCLATE 100 MG CAP PO SCH (07:50)
[2023-08-08] MEDS: methylPREDNISolone 80 MG in SYRINGE 0 ML IV SCH (07:50)
[2023-08-08 08:39] LABS: Hematocrit (blood only) 29.4 % (37.0-47.0); Hemoglobin 10.1 g/dl (12.0-16.0); Mean Corpuscular Hemoglobin 29.6 pg (25.0-34.0); Mean Corpuscular Hgb Conc 34.4 g/dL (32.0-36.0); Mean Corpuscular Volume 86.2 fL (80.0-100.0); Mean Platelet Volume 9.8 fL (9.4-12.4); Nucleated RBC # (auto) 0.07 K/uL (0.00-0.12); Nucleated RBC % (auto) 0.5 %; Platelet Count 472 K/uL (130-400); RDW Coefficient of Variation 13.4 % (11.5-14.5); RDW Standard Deviation 42.6 fL (36.4-46.3); Red Blood Count 3.41 M/uL (4.20-5.40); White Blood Count 14.42 K/ul (4.8-10.8)
[2023-08-08 08:51] LABS: BUN Creatinine Ratio 31.9 (10-20); C Reactive Protein 8.52 mg/dl (0-0.5); Calcium 8.4 mg/dl (8.6-10.3); Creatinine Clr Calc Pharmacy 75.5 ml/min; Est GFR (Non-African American) 89.8 ml/min; Potassium 3.7 mmol/L (3.5-5.1)
[2023-08-08 09:05] LABS: Basophils # (auto) 0.05 K/uL (0.00-0.20); Basophils % (auto) 0.3 %; Immature Granulocytes # (auto) 0.98 K/uL (0.01-0.20); Immature Granulocytes % (auto) 6.8 %; Lymphocytes # (auto) 1.48 K/uL (1.20-3.40); Lymphocytes % (auto) 10.3 %; Monocytes # (auto) 0.62 K/uL (0.11-0.59); Monocytes % (auto) 4.3 %; Neutrophils # (auto) 11.29 K/uL (1.40-6.50); Neutrophils % (auto) 78.3 %; Target Cells 1+
[2023-08-08 09:09] LABS: Ferritin 390.2 ng/ml (8-388)
[2023-08-08 10:56] LABS: C-Reactive Protein High Sens. >10.0 mg/L
[2023-08-08 10:56] LABS: C-Reactive Protein High Sens. >10.0 mg/L
--- NOTE | 2023-08-08 15:14 | Discharge Summary ---
Discharge Summary Date of Service August 08, 2023 Admission HPI Per Admitting Provider Liudmila Frazier is a 63 year old female who presents to the ER with generalized weakness, malaise, loss of taste, hand and foot swelling, rash, cough, fever and sore throat. Initial symptom started with sore throat on Tuesday with associated chills and non-productive cough. She reports losing her voice from Tuesday to but now feels this has come back. She has not taken any over the counter medications except for cough sweets. Specifically no NSAIDs. She denies any allergies to any medications. Rash started yesterday on her truck and now over her entire body. She denies any difficulty breathing although her has noticed she is very fatigued on exertion but just hasn't been exerting herself for the last couple of days. She reports everything she eats taste like salt. She denies any sinus pain, tooth ache, chest pain, abdominal pain, diarrhea, nausea, vomiting, urinary symptoms, melena or hematochezia. She notes a history of tonsillectomy aged 5. She is otherwise healthy with no chronic medical conditions or regular medications. She tested positive for SARS-COV-2 in the ER. She reports no prior known COVID. Principal Dx & Hospital Course #1 = Principal Diagnosis (1) Sepsis: Patient met criteria for sepsis. Was given fluid bolus Lactic acidosis resolved Patient was treated with IV Zosyn and doxycycline. Will continue p.o. doxycycline for now Will discontinue IV Zosyn White count has normalized Blood cultures and urine cultures negative so far infectious disease involved There is concern for severe inflammatory reaction to COVID 19 Patient presents with rash, high procalcitonin level, high inflammatory markers, elevated troponin. there is concern for MIS-A patient is on IV Solu-Medrol 80 mg IV twice daily Received a dose of tocilizumab on 08/05 Received IVIG No sore throat Aches and pains have almost resolved ESR coming down CRP coming down Continue to check daily inflammatory markers including ESR, CRP, ferritin Ordered IL-6 which is a send out Infectious workup so far negative Mycoplasma pneumonia oropharyngeal swab pending CT chest abdomen and pelvis done to evaluate for any source of infection. Gallbladder is markedly thickened and edematous. Patient does not have any right upper quadrant pain. She is already on Zosyn. Suspect that this could be a nonspecific sign of fluid overload As the patient also has some pelvic ascites and edema of pelvic soft tissues. (2) Sore throat: Suspected source. No one sided swelling or pus seen on exam. CT neck soft tissue fairly unremarkable Group A strep PCR negative. throat culture so far negative Sore throat resolved (3) COVID-19: her symptoms began on 07/24. She is outside the window for antivirals. No hypoxia. Continue isolation precautions most likely has hyper inflammatory response to COVID: MIS-A Patient had taken the first COVID shot followed by the first booster dose. (4) Pneumonia: Very mild changes on CXR And CT chest- doubtful this is causing her severe sepsis but will cover for atypical infection with doxycycline . Discontinue Zosyn. Biofire positive for COVID (5) Rash: No mucous membrane involvement, blistering to suspect Bhaskar Robert. Not characteristic of erythema marginatum at this time. ?viral exanthem ? Part of hyper inflammatory reaction from COVID improving (6) Hyponatremia: Suspect this is nutritional Resolved as patient is eating better (7) Elevated troponin: No chest pain or significant shortness of breath to suggest ACS TTE was clinically difficult to read ? viral Myocarditis EF 55 to 60% cardiology. 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: (9) Erythema marginatum: (10) Hepatomegaly: Plan VTE Prophylaxis - Lovenox Diet - regular Updated Medication List Medication Instructions Recorded Confirmed Type doxycycline hyclate 100 mg capsule 100 mg PO BID #10 caps 08/08/23 Rx prednisone 10 mg tablet 60 mg (6 x 10 mg) PO DAILY #42 tabs 08/08/23 Rx rivaroxaban 10 mg tablet (Xarelto) 10 mg PO DAILY to prevent blood 08/08/23 Rx clots 35 days #35 tabs Hospital Stay Data Consultations 08/04/23 01:01 Consult Infectious Diseases Routine 08/04/23 17:39 Consult Cardiology Routine Diagnostic Imagining Performed 08/03/23 16:54 CT head/brain wo con Stat CT soft tissue neck w con Stat 08/04/23 12:18 US leg [US venous doppler LE LT] Stat 08/05/23 13:13 CT abd pelvis wo con Routine CT chest diagnostic wo con Routine Pending Results Patient Have Any Pending Studies at Discharge: Yes (Histoplasmosis and M ycoplasma antigen,Tick borne illness panel) Discharge Instructions Given to Patient (Per Discharging Provider) Please finish out the course of prednisone over the next 2 weeks in a tapering fashion-this will be prednisone 60mg daily x 2 days then 50mg daily x 2 days then 40mg daily x 2 days then 30mg daily x 2 days then 20mg daily x 2 days then 10mg daily x 2 days, then stop. You will be prescribed a blood thinner at a low dose to prevent blood clots in your legs or lung as you are at higher risk for developing this after having CO VID with significant inflammation and a prolonged hospital stay. This is called Xarelto. If you have any issues with bleeding as we discussed, please call your doctor or return to the hospital right away. If you develop return of rash, fevers, chest pain, shortness of breath, leg swelling or pain, please return to the hospital. You will need to follow with a Parts Department Supervisor for your MIS-A as well as the Pension Manager and your PCP. Coding Diagnoses Sepsis A41.9 Sepsis acute organ dysfunction status: unspecified Sepsis type: sepsis due to unspecified organism Sore throat J02.9 COVID-19 U07.1 Pneumonia J18.9 Laterality: unspecified laterality Lung location: unspecified part of lung Pneumonia type: due to unspecified organism Rash R21 Hyponatremia E87.1 Elevated troponin R79.89 Multisystem inflammatory syndrome associated with COVID-19 M35.81 Erythema marginatum L53.2 Hepatomegaly R16.0
--- NOTE | 2023-08-08 16:04 | Infectious Disease Progress Nt ---
Date of Service August 08, 2023 Assessment & Plan (1) COVID-19: (2) Elevated troponin: (3) Pharyngitis: (4) Fever: (5) Leukocytosis: (6) Rash: (7) Erythema marginatum: Admission and Anticipated Discharge Date Admission Date: August 03, 2023 Subjective This patient recommendation is based on a telemedicine consult request which was completed asynchronously through chart review and information provided by the primary physician. The patient was not seen or examined today. The evaluation is consultative in nature and all patient care and treatment decisions can either be accepted or rejected by the patient's primary hospital-based treating physician using their own independent medical judgment for their patient. - Afebrile, WBC 25 -> 9 on 08/05 - Patient feeling well, she feels much better since admission. - Slight cough, improving. No chest pain or shortness of breath. Sore throat resolved. Rash nearly completely resolved. - Plan on discharge today Results & Data Vital Signs (Past 12 Hours) Vital Signs Temp Pulse Pulse Resp BP Pulse Ox O2 Del Method 08/08/23 14:56 55 L 08/08/23 11:54 36.6 C 65 18 155/72 H 91 Room Air 08/08/23 08:00 Room Air 08/08/23 07:41 36.5 C 56 L 18 156/70 H 92 Room Air 08/08/23 07:18 56 L Diagnostic Findings Diagnostics: 08/04 TTE Technically limited. No pericardial effusion. Mild MR, trace TR. 08/03/23 CT neck soft tissue 1. No acute abnormality is seen in the neck. 2. Paranasal sinus disease as above. Correlate clinically for evidence of sinusitis. 3. There are numerous cervical chain lymph nodes. These are not pathologically enlarged by size criteria and may be reactive. Cortical clinically. 4. A large apical lucency is seen involving the most posterior left maxillary molar. Follow up with dentistry is recommended. 08/03/23 CT head Sinuses and mastoids: There is moderate mucosal thickening within the maxillary antra and ethmoid sinuses. Air-fluid levels are seen within the maxillary sinuses. There is subtotal opacification and fluid within the sphenoid sinuses. Trace mucosal thickening is seen in the frontal sinuses. The mastoid air cells are well pneumatized. 1. There is no hemorrhage, mass effect, or evidence of acute territorial ischemia by CT criteria. 1.Pansinus disease as above. Correlate clinically for evidence of acute sinusitis. Micro Summary: 08/05 Stool C. diff neg 08/05 IL-6 pending 08/05 Mycoplasma OP PCR pending 08/04 HSV-1/2 PCR neg 08/04 Histo UrAg pending 08/04 Mycoplasma IgG/IgM pending 08/03 Monospot negative 08/03 UCx NGTD 08/03 BCx x2 NGTD 08/03 throat cx light nl kezia preliminary, final cx pending 08/03 MRSA nares neg 08/03 respiratory pathogen panel: SARS-CoV-2 detected. All others negative including M. pneumoniae PCR. 08/03: Anaplasma smear neg, Babesia smear neg 08/03 Rickettsia IgG Ab: p 08/03 Ehrlichia PCR: pending 08/03 Babesia PCR: pending 08/03 Lyme IgG Ab neg, IgM Ab neg 08/03 Q fever Ab: p 08/03 Typhus fever Ab: p 08/03 Group A Strep throat PCR: not detected 08/03 UA: 10-30 WBCs, 0-4 RBCs, >30 epithelial Antibiotic Summary: pip-tazo (08/03-08/07) doxycycline (08/03-present) Methylprednisolone (08/04-present) Tocilizumab (08/05) IVIG (08/05, 08/06)
--- NOTE | 2023-08-08 16:13 | Infectious Disease Progress Nt ---
Date of Service August 08, 2023 Assessment & Plan (1) COVID-19: (2) Elevated troponin: (3) Pharyngitis: (4) Fever: (5) Leukocytosis: (6) Rash: (7) Erythema marginatum: Plan Liudmila Frazier is a 63-year-old woman with history of tonsillectomy (at age 5) who presents to the ED on 08/03/23 with sore throat, diffuse rash, cough, fever, sore throat, dysgeusia, hand and foot swelling, found to be Covid-19+, with fevers, elevated troponin (peak 82), ESR 81 CRP 29. ID is consulted for Covid-19 and evaluation of fevers. Concern for hyperinflammatory response to Covid-19 including MIS-A. The patients D1 of Covid-19 symptoms was 07/24/23. Without hypoxemia, and >10 days out from sx, thus would not give remdesivir. Concern that patients clinical picture may represent MIS-A or other systemic inflammatory response/rheumatologic disease due to Covid-19 infection. Regarding MIS-A, pt with rash but does not have non-purulent conjunctivitis; she does have elevated ESR and procalcitonin (though these are nonspecific) and a +SARS-CoV-2 test. Also with hypotension to SBP 80s-90 and elevated troponin with a peak of 82 which could be c/f myocarditis/pericarditis. No chest pain; TTE without pericardial effusion though low quality study. Appreciate cardiology involvementconcern for possible viral myocarditis in the setting of Covid-19. Awaiting IL-6. Ferritin normal though this was collected >12h after steroids. Have had significant improvement (improvement in symptoms, resolution of fevers, and normalization of WBC count) with methylprednisolone, and have also used IVIG and tocilizumab. Will presume that the patients clinical presentation was most likely related to Covid-19 hyperinflammatory response such as MIS-A. At this time, would be reasonable to transition to a PO prednisone taper. Would ensure close follow-up with PCP, as well as cardiology and consideration of rheumatology. Please note that pts risk of infection may be increased in the coming months given prednisone and tocilizumabpatient voiced understanding this of this and will monitor closely for fever, pain, and other new symptoms. - Case definition of MIS-A: https://www.cdc.gov/mis/mis-a/hcp.html - Discussion of management including use of tocilizumab: https://www.acpjournals.org/doi/10.7326/aimcc.2021.0066#F2 https://www.ncbi.nlm.nih.gov/pmc/articles/GXN38195765/ https://jamanetwork.com/journals/jamanetworkopen/fullarticle/1113238 https://www.wnhtu13asbzztakzjhizrphexm.nih.gov /management/gugbumdo-qgbqlbjels-ng-children/kfiiqncfcowl-ylodkvev-pplpaxvayfj-ma knuwocvo-ky-lak-c/ - Dosing for MIS-C (a similar and more well-described syndrome in children): https://www.trywt26kgpwvefmdajzwaecsrl.nih.gov/tables/gpz-k-excxer-regimens/ - MIS-C (children) suggested follow-up planning: https://www.[facility]/clinical-pathway/vxjiicityqj-uycqkkahtear-ldemwngu-mis-c-tammy perrytjlqpxi-vbrulusdvlhj-vxo-follow-plan Given the pts leukocytosis and fevers, have also evaluated for other infections including typical bacterial infection. BCx NGTD. Without s/sx of bacterial pneumonia. Initially with severe pharyngitis symptoms though without abscess, pt is s/p tonsillectomy. Some sinusitis on CT though would not expect that to explain the patients severe presentation. Throat PCR negative for Group A Strep, throat cx NGTD, Monospot neg. Mycoplasma pneumoniae PCR (from OP) and serology. Given that there is uncertainty in the etiology of her presentation, as part of the fever evaluation, would also consider a CT ervin-scan. Will also send Histo UrAg. Have completed a course of pip-tazo (which encompasses HAP) just in case of bacterial component, though no bacterial infection was identifi ed. The patients rash has coalescing patches and macules, as well as circular lesionsthe circular lesions appearing to resemble erythema marginatum and less resembling erythema multiforme. This can be associated with Covid-19 as well though is nonspecific and associated with other infections as well. This rash began improving while on steroids and has nearly completely resolved. Also considered the possibility of tickborne illness, though pts rash does not appear to be maculopapular and does not resemble erythema migrans. Rickettsia Ab and Anaplasma/Babesia studies pending. Thus far with negative Anaplasma smear, Lyme Ab neg. Out of an abundance of caution, can complete a course of doxycycline given that studies are still pending. ID Problem List: 1.Covid-19 infection 2.Fever, leukocytosis, elevated ESR/CRP, concern for MIS-A 3.Elevated troponin, suspected viral myocarditis 2/2 SARS-CoV-2 4.Rash, possible erythema marginatum 5.Pharyngitis Recommendations: - Continue steroids, can change to PO prednisone taper as you are (<2 additional weeks of steroids and thus low risk for needing PJP ppx) - Stop pip-tazo - Continue doxycycline 100 mg PO BID to complete a 10-day course - Per cardiology, no need for ASA - Similar follow-up guidance for MIS-C (similar syndrome in children): https://www.[facility]/clinical-pathway/multisy tbpk-znpttzkvhyvj-hmkwojuc-ewd-h-fsyumpbrj-zwvkdtmqlkne-wwp-vhgyud-plan - patient will follow with PCP, cardiology, rheumatology - F/u: IL-6, Mycoplasma pneumoniae Ab, Mycoplasma PCR (oropharynx), Histo UrAg, Rickettsia Ab, Q fever Ab, Anaplasma DNA PCR, Babesia DNA PCR - Please reengage ID if any of the additional infectious diseases testing returns positive Plan discussed with hospitalist. Thank you for letting ID participate in the care of this patient. Patient will be discharging, thus ID will sign off at this time. If questions, please contact the [facility] call center at [phone]. Please reengage ID if any of the additional infectious diseases testing returns positive. Raegan Skaggs MD, [facility] Infectious Diseases [facility] Connect direct line: [phone] Admission and Anticipated Discharge Date Admission Date: August 03, 2023 Subjective Subsequent visit was provided via telemedicine using two-way real-time interactive telecommunication between the patient and the telemedicine provider. For the duration of the visit, the provider was performing the assessment from a different facility than the patient. This includesuse of bluetooth stethoscope forauscultationperformed by the telepresenter that the telemedicine provider can hear if described in the physical exam. Gis Coordinator contact information: Please call [facility] Call Center . (Phone Number For Physician Use Only) After establishing a telemedicine visit, patient was: Patient was verified with two unique identifiers, Patient/authorized rep acknowledged consent and understanding and Gave permission to continue telehealth session Time Spent with Patient: Subsequent => 55 min - Afebrile, WBC 25 -> 9 on 08/05 - Patient feeling well, she feels much better since admission. - Slight cough, improving. No chest pain or shortness of breath. Sore throat resolved. Rash nearly completely resolved. - Plan on discharge today Physical Exam Physical Exam: Exam obtained with aid of in-person telepresenter. General: Well-appearing, no acute distress HEENT: Conjunctivae non-injected, sclerae anicteric. MMM, OP clear. No further discomfort with mouth opening or speaking CV: Unable to tele-auscultate due to technical difficulties; per telepresenter: RRR Resp: Unable to tele-auscultate due to technical difficulties; per telepresenter: CTAB Abd: Soft, nontender, nondistended. Ext: Warm and well-perfused. Resolved swelling in hands and feet. Skin: Near-complete resolution of previously noted macular circular coalescing rash, with very faint erythematous patches remaining in upper and lower extremities. Neuro: Alert & interactive. Grossly non-focal. Psych: Pleasant, appropriate. Results & Data Vital Signs (Past 12 Hours) Vital Signs Temp Pulse Pulse Pulse Resp BP BP 08/08/23 16:08 36.6 C 86 65 18 155/72 H 162/78 H 08/08/23 14:56 55 L 08/08/23 11:54 36.6 C 65 18 155/72 H 08/08/23 08:00 08/08/23 07:41 36.5 C 56 L 18 156/70 H 08/08/23 07:18 56 L Pulse Ox O2 Del Method 08/08/23 16:08 91 08/08/23 14:56 08/08/23 11:54 91 Room Air 08/08/23 08:00 Room Air 08/08/23 07:41 92 Room Air 08/08/23 07:18 Diagnostic Findings Diagnostics: 08/04 TTE Technically limited. No pericardial effusion. Mild MR, trace TR. 08/03/23 CT neck soft tissue 1. No acute abnormality is seen in the neck. 2. Paranasal sinus disease as above. Correlate clinically for evidence of sinusitis. 3. There are numerous cervical chain lymph nodes. These are not pathologically enlarged by size criteria and may be reactive. Cortical clinically. 4. A large apical lucency is seen involving the most posterior left maxillary molar. Follow up with dentistry is recommended. 08/03/23 CT head Sinuses and mastoids: There is moderate mucosal thickening within the maxillary antra and ethmoid sinuses. Air-fluid levels are seen within the maxillary sinuses. There is subtotal opacification and fluid within the sphenoid sinuses. Trace mucosal thickening is seen in the frontal sinuses. The mastoid air cells are well pneumatized. 1. There is no hemorrhage, mass effect, or evidence of acute territorial ischemia by CT criteria. 1.Pansinus disease as above. Correlate clinically for evidence of acute sinusitis. Micro Summary: 08/05 Stool C. diff neg 08/05 IL-6 pending 08/05 Mycoplasma OP PCR pending 08/04 HSV-1/2 PCR neg 08/04 Histo UrAg pending 08/04 Mycoplasma IgG/IgM pending 08/03 Monospot negative 08/03 UCx NGTD 08/03 BCx x2 NGTD 08/03 throat cx light nl kezia preliminary, final cx pending 08/03 MRSA nares neg 08/03 respiratory pathogen panel: SARS-CoV-2 detected. All others negative including M. pneumoniae PCR. 08/03: Anaplasma smear neg, Babesia smear neg 08/03 Rickettsia IgG Ab: p 08/03 Ehrlichia PCR: pending 08/03 Babesia PCR: pending 08/03 Lyme IgG Ab neg, IgM Ab neg 08/03 Q fever Ab: p 08/03 Typhus fever Ab: p 08/03 Group A Strep throat PCR: not detected 08/03 UA: 10-30 WBCs, 0-4 RBCs, >30 epithelial Antibiotic Summary: pip-tazo (08/03-08/07) doxycycline (08/03-present) Methylprednisolone (08/04-present) Tocilizumab (08/05) IVIG (08/05, 08/06)
[2023-08-08] MEDS: ENOXAPARIN INJ 40 MG/0.4 ML SYR SQ SCH (16:47)
[2023-08-08 17:31] LABS: Mycoplasma pneumoniae Ab, IgG <=0.90 (<=0.90); Mycoplasma pneumoniae Ab, IgM 346 U/mL (<770)
[2023-08-08 18:12] LABS: Babesia microti DNA Not Detected (Not Detected)
[2023-08-10 09:09] LABS: Ehrlichia chaff DNA Bld Negative (Negative)
[2023-08-10 18:02] LABS: Q Fever IgG, Phase I NEGATIVE; Q Fever Phase I IgM Antibody NEGATIVE; Q Fever Phase II IgG Antibody NEGATIVE; Q Fever Phase II IgM Antibody NEGATIVE; R. typhi IgG Ab NOT DETECTED; R. typhi IgM Ab NOT DETECTED; RMSF IgG Ab NOT DETECTED; RMSF IgM Ab NOT DETECTED
== END 2023-08-08 17:11 | disposition home or self-care (01) | DRG 871 ==
LOC: ED 15:24 → 2S 18:56 → SUATTDRO 18:56 → 2S 21:20